=== PATIENT | male | born 1930 | race Caucasian/White ===

== ENCOUNTER 2016-10-24 13:25 | Outpatient (CLI) | payer MEDICARE | END 2016-10-24 13:26 | disposition home or self-care (01) | DX: N18.9 Chronic kidney disease, unspecified (principal); I50.9 Heart failure, unspecified ==

== ENCOUNTER 2016-11-22 12:45 | Outpatient (CLI) | payer MEDICARE | END 2016-11-22 12:46 | disposition home or self-care (01) | DX: N18.9 Chronic kidney disease, unspecified (principal); D63.1 Anemia in chronic kidney disease; I50.9 Heart failure, unspecified; E53.8 Deficiency of other specified B group vitamins ==

== ENCOUNTER 2017-01-03 12:58 | Outpatient (CLI) | payer MEDICARE | END 2017-01-03 12:59 | disposition home or self-care (01) | DX: N18.9 Chronic kidney disease, unspecified (principal); D63.1 Anemia in chronic kidney disease; I50.9 Heart failure, unspecified ==

== ENCOUNTER 2017-01-03 21:35 | Inpatient (IN) | payer MEDICARE ==
[2017-01-03] MEDS ORDERED: ONDANSETRON 4 MG/2 ML VIAL IVP PRN (22:20)
[2017-01-03] MEDS ORDERED: ACETAMINOPHEN 325 MG TABLET PO PRN (22:20)
[2017-01-03] MEDS ORDERED: diphenhydrAMINE INJ 50 MG/ML VIAL IVP PRN (22:23)
[2017-01-03] MEDS ORDERED: FUROSEMIDE 20 MG/2 ML VIAL IVP PRN (22:23)
[2017-01-04] MEDS: PANTOPRAZOLE 40 MG VIAL IVP SCH ×3 (00:07→16:14)
[2017-01-04] MEDS: SODIUM CHLORIDE FLUSH 0.9% 10 ML SYRINGE IVP PRN ×2 (00:07→10:55)
[2017-01-04] MEDS: SODIUM CHLORIDE FLUSH 0.9% 10 ML SYRINGE IVP SCH ×3 (06:24→20:03)
[2017-01-04] MEDS: FERROUS SULFATE 325 MG TABLET PO SCH ×2 (08:56→16:14)
[2017-01-04] MEDS: ESCITALOPRAM 10 MG TABLET PO SCH (08:56)
[2017-01-04] MEDS: FUROSEMIDE 20 MG TABLET PO SCH (08:57)
[2017-01-04] MEDS: POTASSIUM CHLORIDE 10 MEQ CAPSULE PO SCH (08:57)
[2017-01-04] MEDS: TAMSULOSIN 0.4 MG CAPSULE PO SCH (08:57)
[2017-01-04] MEDS ORDERED: METOPROLOL SUCCINATE 50 MG TABLET PO SCH (09:00)
[2017-01-04] MEDS: POLYETHYLENE GLYCOL 3350 17 GM PACKET PO SCH (09:05)
[2017-01-04] MEDS ORDERED: SODIUM CHLORIDE 0.9% 250 ML IV ONE (10:53)
[2017-01-04] MEDS ORDERED: ACETAMINOPHEN 325 MG TABLET PO PRN (12:34)
[2017-01-04] MEDS: ASPIRIN EC 81 MG TABLET PO SCH (13:58)
[2017-01-05] MEDS: PANTOPRAZOLE 40 MG VIAL IVP SCH (06:17)
[2017-01-05] MEDS: SODIUM CHLORIDE FLUSH 0.9% 10 ML SYRINGE IVP SCH (06:17)
[2017-01-05] MEDS: POTASSIUM CHLORIDE 10 MEQ CAPSULE PO SCH (08:09)
[2017-01-05] MEDS: TAMSULOSIN 0.4 MG CAPSULE PO SCH (08:10)
[2017-01-05] MEDS: FERROUS SULFATE 325 MG TABLET PO SCH (08:10)
[2017-01-05] MEDS: FUROSEMIDE 20 MG TABLET PO SCH (08:10)
[2017-01-05] MEDS: ASPIRIN EC 81 MG TABLET PO SCH (08:11)
[2017-01-05] MEDS: ESCITALOPRAM 10 MG TABLET PO SCH (08:11)
[2017-01-05] MEDS: POLYETHYLENE GLYCOL 3350 17 GM PACKET PO SCH (08:12)
[2017-01-05] MEDS ORDERED: TRIAMCINOLONE 0.1% CREAM 15 GM TUBE TOP SCH (09:00)
[2017-01-05] MEDS ORDERED: CHOLECALCIFEROL 1,000 UNIT TABLET PO SCH (09:00)
[2017-01-05] MEDS ORDERED: SACCHAROMYCES BOULARDII 250 MG CAPSULE PO SCH (09:00)
== END 2017-01-05 13:30 | disposition home or self-care (01) | DRG 812 ==
PROC: 30233N1 Transfusion of Nonautologous Red Blood Cells into Peripheral Vein, Percutaneous Approach (ICD-10-PCS; principal; 2017-01-04)
DX: D50.9 Iron deficiency anemia, unspecified (principal); K92.2 Gastrointestinal hemorrhage, unspecified; G30.9 Alzheimer's disease, unspecified; F02.80 Dementia in other diseases classified elsewhere, unspecified severity, without behavioral disturbance, psychotic disturbance, mood disturbance, and anxiety; R13.10 Dysphagia, unspecified; K64.8 Other hemorrhoids; F03.90 Unspecified dementia, unspecified severity, without behavioral disturbance, psychotic disturbance, mood disturbance, and anxiety; I12.9 Hypertensive chronic kidney disease with stage 1 through stage 4 chronic kidney disease, or unspecified chronic kidney disease; Z85.46 Personal history of malignant neoplasm of prostate; Z79.82 Long term (current) use of aspirin; N18.3 Chronic kidney disease, stage 3 (moderate); I44.0 Atrioventricular block, first degree; R00.1 Bradycardia, unspecified; F32.9 Major depressive disorder, single episode, unspecified; Z86.73 Personal history of transient ischemic attack (TIA), and cerebral infarction without residual deficits

== ENCOUNTER 2017-01-08 13:03 | Outpatient (CLI) | payer MEDICARE ==
[2017-01-08] MEDS ORDERED: BARIUM SULFATE 176 GM BOTTLE PO ONE (15:24)
[2017-01-08] MEDS ORDERED: BARIUM SULFATE 454 GM TUBE PO ONE (15:24)
== END 2017-01-08 13:04 | disposition home or self-care (01) ==
DX: R09.89 Other specified symptoms and signs involving the circulatory and respiratory systems (principal); F03.90 Unspecified dementia, unspecified severity, without behavioral disturbance, psychotic disturbance, mood disturbance, and anxiety
CPT/HCPCS: 74230; 92611; A9270

== ENCOUNTER 2017-01-13 13:11 | Outpatient (CLI) | payer MEDICARE | END 2017-01-13 13:12 | disposition home or self-care (01) | DX: K62.5 Hemorrhage of anus and rectum (principal) ==

== ENCOUNTER 2017-03-27 16:55 | Outpatient (CLI) | payer MEDICARE ==
[2017-03-27 17:25] LABS: BASOPHILS # (AUTO) 0.1 10^3/uL (0.0-0.1); EOSINOPHILS # (AUTO) 0.3 10^3/uL (0.0-0.7); EOSINOPHILS % (AUTO) 4.8 %; HCT - HEMATOCRIT 40.6 % (42.0-52.0); HGB - HEMOGLOBIN 13.7 g/dL (14.0-18.0); LYMPHOCYTES # (AUTO) 1.7 10^3/uL (1.5-3.5); LYMPHOCYTES % (AUTO) 30.1 %; MEAN CORPUSCULAR HEMOGLOBIN 32.2 pg (27.0-31.0); MEAN CORPUSCULAR HGB CONC 33.8 g/dL (32.0-36.0); MEAN CORPUSCULAR VOLUME 95.3 fL (80.0-94.0); MEAN PLATELET VOLUME 8.8 fL (7.4-11.4); MONOCYTES # (AUTO) 0.5 10^3/uL (0.0-1.0); MONOCYTES % (AUTO) 9.2 %; NEUTROPHILS # (AUTO) 3.2 10^3/uL (1.5-6.6); NEUTROPHILS % (AUTO) 54.9 %; NUCLEATED RED BLOOD CELLS AUTO 0.1 /100WBC; RED BLOOD COUNT 4.26 10^6/uL (4.70-6.10); RED CELL DISTRIBUTION WIDTH 18.2 % (12.0-15.0); UNCORRECTED WHITE BLOOD COUNT 5.8 x10^3/uL; WHITE BLOOD COUNT 5.8 x10^3/uL (4.8-10.8)
== END 2017-03-27 16:56 | disposition home or self-care (01) ==
LOC: LAB 16:55
PROVIDERS: ATTEND Nurse Practitioner Family
DX: N18.9 Chronic kidney disease, unspecified (principal); D63.1 Anemia in chronic kidney disease
CPT/HCPCS: 36415; 85025

== ENCOUNTER 2017-04-01 08:00 | Outpatient (CLI) | payer MEDICARE | END 2017-04-01 23:59 | disposition home or self-care (01) | LOC: LAB.R 08:00 | PROVIDERS: ATTEND Nurse Practitioner Family | DX: D63.1 Anemia in chronic kidney disease (principal) | CPT/HCPCS: 82270 ==

== ENCOUNTER 2017-05-08 12:11 | Day surgery (SDC) | payer MEDICARE ==
[2017-05-08] MEDS ORDERED: LACTATED RINGERS 1,000 ML IV ONE (12:45)
--- NOTE | 2017-05-08 14:09 | HISTORY & PHYSICAL EXAMINATION ---
HPI - History of Present Illness HPI Comment/Other: patient is here for anemia and choking episodes Current Meds: FE TABS 325 (65 FE) MG ORAL TBEC (FERROUS SULFATE) Take one tab by mouth twice daily OMEPRAZOLE 20 MG CPDR (OMEPRAZOLE) Take one capsule by mouth twice daily TRIAMCINOLONE ACETONIDE 0.1 % CREA (TRIAMCINOLONE ACETONIDE) Apply sparingly to affected areas daily * HANDICAP PARKING PERMIT Use as directed FLORASTOR 250 MG ORAL CAPS (SACCHAROMYCES BOULARDII) 1 tab by mouth Daily POTASSIUM CHLORIDE CR 10 MEQ TBCR (POTASSIUM CHLORIDE) Take one tablet by mouth daily LASIX 20 MG TABS (FUROSEMIDE) Take two tablet by mouth every morning. With 5 lb weight gain take 2 x one day and call TYLENOL 325 MG TABS (ACETAMINOPHEN) Take 2 tablets every 6 hours as needed for pain VITAMIN D 1000 UNIT TABS (CHOLECALCIFEROL) Take one tablet by mouth daily for vit D deficiency ASPIR-LOW 81 MG ORAL TBEC (ASPIRIN) Take 1 tablet once daily for stroke prevention FLOMAX 0.4 MG CAPS (TAMSULOSIN HCL) Take one capsule by mouth once daily LEXAPRO 10 MG TABS (ESCITALOPRAM OXALATE) Take one tablet by mouth daily METOPROLOL SUCCINATE ER 50 MG [id number] (METOPROLOL SUCCINATE) Take 1/2 tablet once daily for hypertension ALLERGY SYRINGE 28G X 1/2" 1 ML MISC (TUBERCULIN-ALLERGY SYRINGES) Use for Vit B12 injections. CYANOCOBALAMIN 1000 MCG/ML INJ SOLN (CYANOCOBALAMIN) Inject 1 ml intramuscularly once monthly BD INSULIN SYRINGE 25G X 1" 1 ML MISC (INSULIN SYRINGE-NEEDLE U-100) Use to give cyanocobalamin injections once monthly Allergies: NKDA Past Medical History: Reviewed history from 04/19/2016 and no changes required: Prostate Cancer--Herrera 7 2006 Depression HTN Heart Murmur Anemia Frequent Indigestion Heartburn Acid Reflux Hiatal Hernia Anxiety C V A / Stroke (04/2016) Past Surgical History: Reviewed history from 09/21/2013 and no changes required: 07-26-02-left knee arthroplasty 02.24.07--Prostate Ca, [employer] seed implants 03.07.2010--([facility]--[facility]) R knee arthroplasty Cataract Extraction--R eye Family History Summary: Reviewed history Last on 03/26/2016 and no changes required:04/03/2017 Father (biol.) - Has a father - Entered On: 05/11/2014 Mother (biol.) - Has a mother - Entered On: 05/11/2014 General Comments - FH: Father: in 80's, liver cancer Mother: age 77, heart failure Siblings: 1 sister w/diabetes Social History: Reviewed history from 01/10/2017 and no changes required: . 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 His is his primary caregiver. Unfortunately both with dementia. [place] Patient has never smoked. Alcohol Use - yes--2-3 drinks per week. Risk Factors: Smoked Tobacco Use: Never smoker Previous Tobacco Use: Signed On - 01/17/2017 Smoked Tobacco Use: Never smoker Smokeless Tobacco Use: Never Passive smoke exposure: no Drug use: no HIV high-risk behavior: no Caffeine use: 1 drinks per day Previous Alcohol Use: Signed On - 01/17/2017 Alcohol use: no Exercise: no Seatbelt use: 100 % Sun Exposure: rarely Physical Exam General: normal appearance and obese. In a wheelchair Lungs: clear bilaterally to A & P Heart: Pansystolic murmur Abdomen: Protuberant, nontender to palpation, no masses palpable Pulses: pulses normal in all 4 extremities Extremities: no clubbing, cyanosis, edema, or deformity noted with normal full range of motion of all joints Cervical Nodes: no significant adenopathy Psych: alert and cooperative; normal mood and affect; normal attention span and concentration Impression & Recommendations: Problem # 1: Choking and chronic anemia proceed with EGD. PMH/PSH - Past Medical History Cardiovascular: positive: Hypertension, Murmur Respiratory: positive: None Neuro: positive: Dementia, CVA (Right [place] in 2015) Endocrine/Autoimmune: positive: None GI: positive: GERD, GI bleed, Hiatal hernia, Colon polyps : positive: Incontinence, Other HEENT: positive: None Psych: positive: Depression Musculoskeletal: positive: Osteoarthritis, Fatigue Derm: positive: Other MRSA Hx?: No - Past Surgical History General: positive: Colonoscopy Ortho: positive: Knee replacement HEENT: positive: Cataracts Social & Family Hx - Social History Does the pt smoke?: No Smoking Status: Never smoker Does the pt drink ETOH?: Yes ETOH Use: Beer Does the pt have substance abuse?: No - POLST Patient has POLST: No Meds/Allgy - Home Medications Home Medications: Ambulatory Orders Medication Instructions Recorded Confirmed Escitalopram [Lexapro] 10 mg PO DAILY 03/27/16 01/04/17 Cyanocobalamin (Vitamin B-12) 1,000 mcg IM .MONTHLY 11/28/16 01/04/17 [Cyanocobalamin Injection] Furosemide [Lasix] 40 mg PO DAILY 11/28/16 01/04/17 Potassium Chloride [Micro-K] 10 meq PO DAILY 11/28/16 01/04/17 Saccharomyces Boulardii [Florastor] 250 mg PO DAILY 11/28/16 01/04/17 Tamsulosin [Flomax] 0.4 mg PO DAILY 11/28/16 01/04/17 Acetaminophen [Tylenol] 650 mg PO Q6H PRN 01/04/17 01/04/17 Aspirin [Aspirin EC] 81 mg PO DAILY 01/04/17 01/04/17 Cholecalciferol (Vitamin D3) 1,000 units PO DAILY 01/04/17 01/04/17 [Vitamin D3] Triamcinolone 0.1% Cream [Kenalog 1 applic TOP DAILY 01/04/17 01/04/17 0.1% Cream] Ferrous Sulfate [Feosol] 325 mg PO BIDWM #60 tablet 01/05/17 Pantoprazole [Protonix] 40 mg IVP BIDAC #60 vial 01/05/17 Polyethylene Glycol 3350 [Miralax] 17 gm PO DAILY #30 packet 01/05/17 - Allergies Allergies/Adverse Reactions: Allergies Allergy/AdvReac Type Severity Reaction Status Date / Time No Known Drug Allergies Allergy Verified 03/26/16 16:39 Exam - Vital Signs Vital Signs: Vital Signs x48h Temp Pulse Resp BP Pulse Ox 05/08/17 12:25 36.6 C 83 16 142/72 H 95
[2017-05-08] MEDS ORDERED: BENZOCAINE/TETRACAINE/BUTAMBEN SPRAY 56 GM TOP ONE (14:16)
[2017-05-08] MEDS ORDERED: fentaNYL 100 MCG/2 ML VIAL IVP ONE (14:35)
[2017-05-08] MEDS ORDERED: MIDAZOLAM 2 MG/2 ML VIAL IVP ONE (14:35)
[2017-05-08 16:02] VITALS: BP 125/75
== END 2017-05-08 12:12 | disposition home or self-care (01) ==
LOC: SDS 12:11
PROVIDERS: ATTEND Surgery
PROC: 0DB78ZX Excision of Stomach, Pylorus, Via Natural or Artificial Opening Endoscopic, Diagnostic (ICD-10-PCS; principal; 2017-05-08 13:15)
DX: D64.9 Anemia, unspecified (principal); K44.9 Diaphragmatic hernia without obstruction or gangrene; R12 Heartburn; K21.9 Gastro-esophageal reflux disease without esophagitis; I10 Essential (primary) hypertension; F32.9 Major depressive disorder, single episode, unspecified; E66.9 Obesity, unspecified; F41.9 Anxiety disorder, unspecified; F03.90 Unspecified dementia, unspecified severity, without behavioral disturbance, psychotic disturbance, mood disturbance, and anxiety; Z86.73 Personal history of transient ischemic attack (TIA), and cerebral infarction without residual deficits; Z82.49 Family history of ischemic heart disease and other diseases of the circulatory system; Z79.82 Long term (current) use of aspirin; Z83.3 Family history of diabetes mellitus; Z80.0 Family history of malignant neoplasm of digestive organs; Z96.659 Presence of unspecified artificial knee joint; Z68.29 Body mass index [BMI] 29.0-29.9, adult
CPT/HCPCS: 43239; A9270; J7120

== ENCOUNTER 2017-07-08 10:11 | Outpatient (CLI) | payer MEDICARE ==
[2017-07-08 18:08] LABS: BILIRUBIN,URINE NEGATIVE (NEGATIVE); PH,URINE 5.5 PH (5.0-7.5)
[2017-07-08 18:58] LABS: WBC,URINE 0-3 /HPF (0-3)
== END 2017-07-08 10:12 | disposition home or self-care (01) ==
LOC: LAB.F 10:11
PROVIDERS: ATTEND Urology
DX: R31.9 Hematuria, unspecified (principal)
CPT/HCPCS: 81001; 87086

== ENCOUNTER 2017-08-30 14:53 | Outpatient (CLI) | payer MEDICARE | END 2017-08-30 14:54 | disposition critical access hospital (66) | LOC: EMS 14:53 | PROVIDERS: ATTEND Surgery | DX: K62.5 Hemorrhage of anus and rectum (principal) | CPT/HCPCS: A0425; A0427 ==

== ENCOUNTER 2017-08-30 15:34 | Emergency (ER) | payer MEDICARE ==
[2017-08-30 15:56] LABS: HCT - HEMATOCRIT 37.9 % (42.0-52.0); MEAN CORPUSCULAR HEMOGLOBIN 34.3 pg (27.0-31.0); MEAN CORPUSCULAR HGB CONC 34.4 g/dL (32.0-36.0); MEAN CORPUSCULAR VOLUME 99.7 fL (80.0-94.0); MEAN PLATELET VOLUME 9.2 fL (7.4-11.4); RED BLOOD COUNT 3.8 10^6/uL (4.70-6.10); RED CELL DISTRIBUTION WIDTH 13.3 % (12.0-15.0); WHITE BLOOD COUNT 5.1 x10^3/uL (4.8-10.8)
[2017-08-30 16:10] LABS: ALBUMIN/GLOBULIN RATIO 0.9 (1.0-2.2); BILIRUBIN,TOTAL 0.9 mg/dL (0.2-1.0); CREATININE 1.3 mg/dL (0.6-1.2); POTASSIUM 3.6 mmol/L (3.5-5.0); TOTAL PROTEIN 6.6 g/dL (6.7-8.2)
[2017-08-30] MEDS ORDERED: IOPAMIDOL-300 100 ML VIAL IVP ONE (17:14)
--- NOTE | 2017-08-30 17:50 | CT Preliminary Report ---
Exam: CT ABDOMEN/PELVIS W/ IMPRESSION: 1. Large hiatal hernia. 2. Mild descending and sigmoid colon diverticulosis without evidence for acute diverticulitis. 3. Cholelithiasis. 4. Mild splenomegaly. 5. Otherwise, as above. [facility] SITE ID: [id number]
--- NOTE | 2017-08-30 17:58 | CT Report ---
EXAM: CT ABDOMEN AND PELVIS EXAM DATE: 08/30/2017 05:14 p.m. CLINICAL HISTORY: Rectal bleeding. COMPARISONS: None. TECHNIQUE: Routine helical CT imaging was performed through the abdomen and pelvis. IV contrast: 100M L OF ISOVUE 300. Enteric contrast: No. Reconstructions: Coronal and sagittal. In accordance with CT protocol optimization, one or more of the following dose reduction techniques w ere utilized for this exam: automated exposure control, adjustment of mA and/or KV based on patient s ize, or use of iterative reconstructive technique. FINDINGS: Lung Bases: Mild bibasilar peripheral pulmonary fibrosis, could be age related. Coronary artery calci fication. Aortic valve calcification. Small right base pleural calcification. Large hiatal hernia. Liver: Normal. No masses. Gallbladder/Bile Ducts: Multiple small gallstones. No bile dilatation. Spleen: Mild splenomegaly measuring 13.9 cm. Pancreas: Unremarkable. Adrenal Glands: Normal. Kidneys: No hydronephrosis. Mild scarring is possible at the lower pole left kidney versus mild lobul ar contour. Peritoneal Cavity/Bowel: Large hiatal hernia. No dilated loops of bowel are seen to suggest obstructi on. Normal appendix. Mild sigmoid and descending colon diverticulosis without evidence for acute dive rticulitis. No free fluid or free air. Pelvic Organs: Bladder is unremarkable. Prostate seed implants. The rectum appears unremarkable. Vasculature: No abdominal aortic aneurysm. Calcified plaque causes hemodynamically significant stenos is at the origin of the celiac artery. Bones: Mild anterolisthesis of L5-S1 where there is large bilateral facet arthropathy and possible bi lateral L5 pars defects reactions. No acute bone findings are seen. IMPRESSION: 1. Large hiatal hernia. 2. Mild descending and sigmoid colon diverticulosis without evidence for acute diverticulitis. 3. Cholelithiasis. 4. Mild splenomegaly. 5. Otherwise, as above. [facility] Referring Provider Line: [phone] SITE ID: [id number]
--- NOTE | 2017-08-30 19:54 | ED Physician Documentation ---
History of Present Illness - Stated complaint Stated Complaint: GI BLEED - Chief complaint Chief Complaint: General - History obtained from History obtained from: EMS (EMS reports they were called by the family after the pt had an episode of rectal bleeding. pt has a hx of dementia and a hx of GI bleeds needing transfusion in the past. his who was not at the hospital states that he is at his baseline mentl status. Reports of 1 episode of bright red blood.) Review of Systems Unable to obtain: Dementia PD PAST MEDICAL HISTORY - Past Medical History Cardiovascular: Hypertension, Murmur Respiratory: None Neuro: Dementia, CVA Endocrine/Autoimmune: None GI: GERD, GI bleed, Hiatal hernia, Colon polyps : Incontinence, Other HEENT: None Psych: Depression Musculoskeletal: Osteoarthritis, Fatigue Derm: Other - Past Surgical History Past Surgical History: Yes General: Colonoscopy Ortho: Knee replacement HEENT: Cataracts - Present Medications Home Medications: Ambulatory Orders Medication Instructions Recorded Confirmed Escitalopram [Lexapro] 10 mg PO DAILY 03/27/16 01/04/17 Cyanocobalamin (Vitamin B-12) 1,000 mcg IM .MONTHLY 11/28/16 01/04/17 [Cyanocobalamin Injection] Furosemide [Lasix] 40 mg PO DAILY 11/28/16 01/04/17 Potassium Chloride [Micro-K] 10 meq PO DAILY 11/28/16 01/04/17 Saccharomyces Boulardii [Florastor] 250 mg PO DAILY 11/28/16 01/04/17 Tamsulosin [Flomax] 0.4 mg PO DAILY 11/28/16 01/04/17 Acetaminophen [Tylenol] 650 mg PO Q6H PRN 01/04/17 01/04/17 Aspirin [Aspirin EC] 81 mg PO DAILY 01/04/17 01/04/17 Cholecalciferol (Vitamin D3) 1,000 units PO DAILY 01/04/17 01/04/17 [Vitamin D3] Triamcinolone 0.1% Cream [Kenalog 1 applic TOP DAILY 01/04/17 01/04/17 0.1% Cream] Ferrous Sulfate [Feosol] 325 mg PO BIDWM #60 tablet 01/05/17 Pantoprazole [Protonix] 40 mg IVP BIDAC #60 vial 01/05/17 Polyethylene Glycol 3350 [Miralax] 17 gm PO DAILY #30 packet 01/05/17 - Allergies Allergies/Adverse Reactions: Allergies Allergy/AdvReac Type Severity Reaction Status Date / Time No Known Drug Allergies Allergy Verified 08/30/17 15:48 - Social History Does the pt smoke?: No Smoking Status: Never smoker Does the pt drink ETOH?: Yes Does the pt have substance abuse?: No - POLST Patient has POLST: No PD ED PE NORMAL - Vitals Vital signs reviewed: Yes - General General: No acute distress, Well developed/nourished. No: Alert and oriented X 3 (pt knows his name and that he is at the hospital but does not know the date or year or why he is here. ) - HEENT HEENT: Atraumatic, Moist mucous membranes - Cardiac Cardiac: RRR, No murmur, No gallop - Respiratory Respiratory: No respiratory distress, Clear bilaterally - Abdomen Abdomen: Normal bowel sounds, Soft, Non tender, Non distended - Rectal Rectal: Other (obvious red blood, 1 external hemorrhoid. No internal hemorrhoid felt. ) - Derm Derm: Normal color, No rash - Neuro Neuro: Normal speech Eye Opening: Spontaneous Motor: Obeys Commands Verbal: Confused GCS Score: 14 - Psych Psych: Normal mood, Normal affect Results - Vitals Vitals: Vital Signs - 24 hr 08/30/17 08/30/17 08/30/17 15:37 16:35 18:23 Temperature 36.3 C L 36.3 C L Heart Rate 77 84 66 Respiratory 20 17 19 Rate Blood Pressure 140/66 H 139/81 H 128/72 O2 Saturation 96 96 94 Oxygen O2 Source [Without Activity] Room air O2 Source Room air - Labs Labs: Laboratory Tests 08/30/17 08/30/17 08/30/17 15:45 15:45 15:45 WBC 5.1 RBC 3.80 L Hgb 13.0 L Hct 37.9 L MCV 99.7 H MCH 34.3 H MCHC 34.4 RDW 13.3 Plt Count 71 L MPV 9.2 Whole Blood INR APTT 26.8 Sodium 140 Potassium 3.6 Chloride 104 Carbon Dioxide 24 Anion Gap 12.0 BUN 15 Creatinine 1.3 H Estimated GFR (MDRD) 52 L Glucose 134 H Calcium 9.0 Total Bilirubin 0.9 AST 45 H ALT 27 Alkaline Phosphatase 96 Total Protein 6.6 L Albumin 3.2 Globulin 3.4 Albumin/Globulin Ratio 0.9 L Lipase 25 Blood Type Antibody Screen 08/30/17 08/30/17 15:45 15:50 WBC RBC Hgb Hct MCV MCH MCHC RDW Plt Count MPV Whole Blood INR 1.2 APTT Sodium Potassium Chloride Carbon Dioxide Anion Gap BUN Creatinine Estimated GFR (MDRD) Glucose Calcium Total Bilirubin AST ALT Alkaline Phosphatase Total Protein Albumin Globulin Albumin/Globulin Ratio Lipase Blood Type O POSITIVE Antibody Screen NEGATIVE - Rads (name of study) CT ABD/Pelvis Radiology: Final report received PD MEDICAL DECISION MAKING - ED course ED course: pt stable in the ER h/h stable from prior. has red blood in his diaper with a hemorrhoid but had no further episodes of rectal bleeding while in the ER. CT neg for acute pathology. pt is a baseline mental per his . I suspect this rectal bleeding f=was from the hemorrhoid. no need for transfusion. Will discharge home with return precautions. Departure - Departure Disposition: Home, Self Care Clinical Impression: Rectal bleeding, External hemorrhoid Condition: Good Instructions: Bleeding Rectal Follow-Up: Homa Almanzar MD [Primary Care Provider] - Comments: Call the primary provider on friday. Return to the ER for any new or worsening symptoms.
[2017-08-30 20:21] VITALS: BP 148/71
== END 2017-08-30 20:36 | disposition home or self-care (01) ==
LOC: EDUNIT# → ED 15:34
DX: K62.5 Hemorrhage of anus and rectum (principal); K64.4 Residual hemorrhoidal skin tags; I10 Essential (primary) hypertension; K21.9 Gastro-esophageal reflux disease without esophagitis; Z86.010 Personal history of colon polyps; M19.90 Unspecified osteoarthritis, unspecified site; F03.90 Unspecified dementia, unspecified severity, without behavioral disturbance, psychotic disturbance, mood disturbance, and anxiety
CPT/HCPCS: 36415; 74177; 80053; 83690; 85610; 85730; 86850; 86900; 86901; 99283; 99284

== ENCOUNTER 2017-09-20 17:38 | Outpatient (CLI) | payer MEDICARE | END 2017-09-20 17:39 | disposition EMS.NT | LOC: EMS 17:38 | PROVIDERS: ATTEND Surgery | DX: S01.91XA Laceration without foreign body of unspecified part of head, initial encounter (principal); W18.30XA Fall on same level, unspecified, initial encounter; Y92.009 Unspecified place in unspecified non-institutional (private) residence as the place of occurrence of the external cause ==

== ENCOUNTER 2018-02-19 13:30 | Emergency (ER) | payer MEDICARE ==
[2018-02-19 14:14] LABS: HGB - HEMOGLOBIN 9.8 g/dL (14.0-18.0); MEAN CORPUSCULAR HGB CONC 33.9 g/dL (32.0-36.0); MEAN CORPUSCULAR VOLUME 100.1 fL (80.0-94.0); MEAN PLATELET VOLUME 9.1 fL (7.4-11.4); RED BLOOD COUNT 2.88 10^6/uL (4.70-6.10); RED CELL DISTRIBUTION WIDTH 14.5 % (12.0-15.0); WHITE BLOOD COUNT 4.2 x10^3/uL (4.8-10.8)
[2018-02-19 14:22] LABS: INR 1.3 (0.8-1.2); PT - PROTHROMBIN TIME 14.7 secs (9.9-12.6)
[2018-02-19] MEDS ORDERED: SODIUM CHLORIDE 0.9% 1,000 ML IV ONE (14:29)
[2018-02-19 14:30] LABS: ALBUMIN 2.8 g/dL (3.2-5.5); ALBUMIN/GLOBULIN RATIO 0.9 (1.0-2.2); BILIRUBIN,TOTAL 1.3 mg/dL (0.2-1.0); CALCIUM 8.5 mg/dL (8.5-10.3); CREATININE 1.5 mg/dL (0.6-1.2); TOTAL PROTEIN 5.8 g/dL (6.7-8.2)
[2018-02-19] MEDS ORDERED: FAMOTIDINE 20 MG/50 ML 50 ML IV ONE (15:09)
--- NOTE | 2018-02-19 15:53 | ED Physician Documentation ---
PD HPI GI BLEED - Stated complaint Stated Complaint: MALE /BLEEDING - Chief complaint Chief Complaint: General - History obtained from History obtained from: Patient, Family - History of Present Illness Timing - onset: How many days ago (6) Timing - details: Still present Associated symptoms: Black/tarry stool Contributing factors: Aspirin use (81 mg) Recently seen: Clinic (He was seen in clinic this morning and was sent here for further evaluation and treatment.) - Additional information Additional information: The patient is an 88-year-old male with history of dementia, who presents with rectal bleeding. His reports that he has had 1 or 2 black stools daily for the past 6 days. He denies any lightheadedness, chest pain, or shortness of breath. He denies abdominal pain, nausea or vomiting. He has a history of similar symptoms intermittently for the past 2 years. He underwent transfusion for anemia in November and January of last year. Workup reportedly revealed no obvious source for his apparent GI bleed, except for hemorrhoids. He is currently being treated with supplemental iron. Review of Systems Constitutional: denies: Fever Nose: denies: Congestion Throat: denies: Sore throat Cardiac: denies: Chest pain / pressure Respiratory: denies: Dyspnea, Cough GI: reports: Bloody / black stool. denies: Abdominal Pain, Nausea, Vomiting : denies: Dysuria Skin: denies: Rash Musculoskeletal: denies: Extremity swelling Neurologic: reports: Confused (chronically). denies: Focal weakness, Numbness, Headache PD PAST MEDICAL HISTORY - Past Medical History Cardiovascular: Hypertension, Murmur Respiratory: None Neuro: Dementia Endocrine/Autoimmune: None GI: GERD, GI bleed, Hiatal hernia, Colon polyps : Incontinence, Other HEENT: None Psych: Depression Musculoskeletal: Osteoarthritis, Fatigue Derm: Other - Past Surgical History Past Surgical History: Yes General: Colonoscopy Ortho: Knee replacement HEENT: Cataracts - Present Medications Home Medications: Ambulatory Orders Medication Instructions Recorded Confirmed Cyanocobalamin (Vitamin B-12) 1,000 mcg IM .MONTHLY 11/28/16 01/04/17 [Cyanocobalamin Injection] Saccharomyces Boulardii [Florastor] 250 mg PO DAILY 11/28/16 01/04/17 Acetaminophen [Tylenol] 650 mg PO Q6H PRN 01/04/17 01/04/17 Aspirin [Aspirin EC] 81 mg PO DAILY 01/04/17 01/04/17 Cholecalciferol (Vitamin D3) 1,000 units PO DAILY 01/04/17 01/04/17 [Vitamin D3] Ferrous Sulfate [Feosol] 325 mg PO BIDWM #60 tablet 01/05/17 Fluticasone [Flonase] 1 inh MULUGETA DAILY 02/19/18 02/19/18 Losartan [Cozaar] 1 tab PO DAILY 02/19/18 02/19/18 Lovastatin 1 tab PO DAILY 02/19/18 02/19/18 Omeprazole 1 cap PO DAILY 02/19/18 02/19/18 metFORMIN [Glucophage] 1 tab PO BID 02/19/18 02/19/18 - Allergies Allergies/Adverse Reactions: Allergies Allergy/AdvReac Type Severity Reaction Status Date / Time No Known Drug Allergies Allergy Verified 02/19/18 15:42 - Social History Does the pt smoke?: No Smoking Status: Never smoker Does the pt drink ETOH?: Yes Does the pt have substance abuse?: No - POLST Patient has POLST: No PD ED PE NORMAL - Vitals Vital signs reviewed: Yes (Normal) - General General: No acute distress, Well developed/nourished, Other (Alert, disoriented to date.) - HEENT HEENT: Atraumatic, Moist mucous membranes - Neck Neck: No adenopathy, No JVD - Cardiac Cardiac: RRR - Respiratory Respiratory: No respiratory distress, Clear bilaterally - Abdomen Abdomen: Soft, Non tender - Rectal Rectal: Other (Black, heme positive stool.) - Back Back: No CVA TTP - Derm Derm: No rash - Extremities Extremities: No edema, No calf tenderness / cord - Neuro Neuro: Other (Alert, oriented 2. Generalized weakness, without focal motor deficit detected.) Results - Vitals Vitals: Oxygen O2 Source [Without Activity] Room air O2 Source Room air - Labs Labs: Laboratory Tests 02/19/18 02/19/18 02/19/18 13:58 13:58 13:58 WBC 4.2 L RBC 2.88 L Hgb 9.8 L Hct 28.8 L MCV 100.1 H MCH 34.0 H MCHC 33.9 RDW 14.5 Plt Count 75 L MPV 9.1 PT 14.7 H INR 1.3 H APTT 28.9 Sodium 138 Potassium 3.5 Chloride 105 Carbon Dioxide 27 Anion Gap 6.0 BUN 21 H Creatinine 1.5 H Estimated GFR (MDRD) 44 L Glucose 189 H Calcium 8.5 Total Bilirubin 1.3 H AST 42 ALT 24 Alkaline Phosphatase 91 Total Protein 5.8 L Albumin 2.8 L Globulin 3.0 Albumin/Globulin Ratio 0.9 L Lipase 19 L Blood Type Antibody Screen 02/19/18 14:12 WBC RBC Hgb Hct MCV MCH MCHC RDW Plt Count MPV PT INR APTT Sodium Potassium Chloride Carbon Dioxide Anion Gap BUN Creatinine Estimated GFR (MDRD) Glucose Calcium Total Bilirubin AST ALT Alkaline Phosphatase Total Protein Albumin Globulin Albumin/Globulin Ratio Lipase Blood Type O POSITIVE Antibody Screen NEGATIVE PD MEDICAL DECISION MAKING - ED course Complexity details: reviewed old records, reviewed results, re-evaluated patient , considered differential, d/w patient, d/w family, d/w java developer consultant ED course: The patient's presentation is significant for GI bleed with anemia, with hemoglobin of 9.8. He is otherwise asymptomatic, and his vital signs are normal. Treatment in the emergency department included administration of famotidine 20 mg IV. I discussed his condition with Dr. Ivy who is on-call for general surgery. He advised outpatient follow-up in the surgery clinic. I discussed with the patient and his family members the results of his workup, the importance of urgent follow-up in surgery clinic, as well as potentially worrisome signs or symptoms that should prompt reevaluation in the emergency department. Departure - Departure Disposition: 01 Home, Self Care Clinical Impression: GI bleed Qualifiers: GI bleed type/associated pathology: melena Qualified Code(s): K92.1 - Melena Dementia Qualifiers: Dementia type: unspecified type Dementia behavioral disturbance: without behavioral disturbance Qualified Code(s): F03.90 - Unspecified dementia without behavioral disturbance Condition: Stable Instructions: ED Hematochezia Stable Follow-Up: HUGO OSBORN MD [Primary Care Provider] - Gerber Ivy MD [Provider Admit Priv/Credential] - Comments: Continue taking omeprazole as previously prescribed, as well as supplemental iron. Follow up with general surgery within the next week. Call to schedule appointment. Return to the emergency department if you develop increasing rectal bleeding, lightheadedness, chest pain, shortness of breath, or otherwise worsening symptoms. Discharge Date/Time: 02/19/18 16:37
[2018-02-19 16:31] VITALS: BP 121/67
== END 2018-02-19 16:37 | disposition home or self-care (01) ==
LOC: ED 13:30
DX: K92.1 Melena (principal); F03.90 Unspecified dementia, unspecified severity, without behavioral disturbance, psychotic disturbance, mood disturbance, and anxiety; I10 Essential (primary) hypertension; Z96.659 Presence of unspecified artificial knee joint
CPT/HCPCS: 36415; 80053; 83690; 85027; 85610; 85730; 86850; 86900; 86901; 96365; 99283; 99284

== ENCOUNTER 2018-03-30 03:11 | Outpatient (CLI) | payer MEDICARE | END 2018-03-30 03:12 | disposition critical access hospital (66) | LOC: EMS 03:11 | PROVIDERS: ATTEND Surgery | DX: K92.0 Hematemesis (principal); K92.1 Melena | CPT/HCPCS: A0425; A0427 ==

== ENCOUNTER 2018-03-30 03:46 | Inpatient (IN) | payer MEDICARE ==
--- NOTE | 2018-03-30 04:13 | ED Physician Documentation ---
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 called 911; en route to ED, he had large maroon stool, as well. Review of Systems Unable to obtain: Confused, Dementia Constitutional: denies: Fever Cardiac: denies: Chest pain / pressure Respiratory: denies: Dyspnea, Cough GI: reports: Hematemesis, Bloody / black stool. denies: Abdominal Pain PD PAST MEDICAL HISTORY - Past Medical History Past Medical History: Yes Cardiovascular: Hypertension, Murmur Respiratory: None Neuro: Dementia Endocrine/Autoimmune: None GI: GERD, GI bleed, Hiatal hernia, Colon polyps : Incontinence, Other HEENT: None Psych: Depression Musculoskeletal: Osteoarthritis, Fatigue Derm: Other - Past Surgical History Past Surgical History: Yes General: Colonoscopy Ortho: Knee replacement HEENT: Cataracts - Present Medications Home Medications: Ambulatory Orders Medication Instructions Recorded Confirmed Aspirin [Aspirin EC] 81 mg PO DAILY 01/04/17 01/04/17 Ferrous Sulfate [Feosol] 325 mg PO BIDWM #60 tablet 01/05/17 Omeprazole 1 cap PO DAILY 02/19/18 02/19/18 Bimatoprost 0.01% Ophth Dops 1 drops EACHEYE DAILY 03/30/18 03/30/18 [Lumigan 0.01% Ophth Drops] Escitalopram [Lexapro] 10 mg PO DAILY 03/30/18 03/30/18 Furosemide [Lasix] 40 mg PO DAILY 03/30/18 03/30/18 Metoprolol Succinate [Toprol Xl] 50 mg PO 03/30/18 03/30/18 Potassium Chloride 10 meq PO 03/30/18 Tamsulosin [Flomax] 0.4 mg PO ONCE 03/30/18 03/30/18 hydrOXYzine HCl [Hydroxyzine HCl] 25 mg PO 03/30/18 - Allergies Allergies/Adverse Reactions: Allergies Allergy/AdvReac Type Severity Reaction Status Date / Time No Known Drug Allergies Allergy Verified 03/30/18 03:54 - Social History Does the pt smoke?: No Smoking Status: Never smoker Does the pt drink ETOH?: Yes Does the pt have substance abuse?: No - Immunizations Immunizations are current?: Yes - POLST Patient has POLST: No PD ED PE NORMAL - Vitals Vital signs reviewed: Yes - General General: No acute distress, Well developed/nourished, Other (awake, alert. oriented x 2 (knows name; does not know year or month; he gradually is able to identify that he is in [facility])) - HEENT HEENT: PERRL, EOMI, Other (dry mucous membranes; dried blood in and around mouth ) - Cardiac Cardiac: RRR - Respiratory Respiratory: No respiratory distress, Clear bilaterally - Abdomen Abdomen: Normal bowel sounds, Soft, Non tender, Non distended - Back Back: No CVA TTP - Derm Derm: Normal color, Warm and dry - Extremities Extremities: No edema - Neuro Neuro: dry roaster 2-12 intact, No motor deficit, No sensory deficit Eye Opening: Spontaneous Motor: Obeys Commands Verbal: Confused GCS Score: 14 PD ED PE EXPANDED - Cardiac Cardiac: Murmur Present (3/6 MICHELLE) - Rectal Rectal: Heme Occult Pos - QC + Results - Vitals Vitals: Vital Signs - 24 hr 03/30/18 03/30/18 03/30/18 03:50 04:00 04:06 Temperature 36.6 C Heart Rate 82 83 82 Respiratory 28 H 25 H 18 Rate Blood Pressure 106/52 L 101/49 L 83/64 L O2 Saturation 99 100 99 03/30/18 03/30/18 03/30/18 04:10 04:33 04:56 Temperature Heart Rate 79 75 Respiratory 18 22 Rate Blood Pressure 85/56 L 97/54 L 83/57 L O2 Saturation 99 99 03/30/18 03/30/18 05:17 05:33 Temperature Heart Rate 79 82 Respiratory 19 18 Rate Blood Pressure 84/52 L 86/53 L O2 Saturation 99 99 Oxygen O2 Source [Without Activity] Room air O2 Source Room air - EKG (time done) No standard instances Rate: Rate (enter#) (80) Rhythm: NSR [place]: LAD Intervals: Normal MI QRS: Normal Ischemia: Normal ST segments, Q waves (III, aVF) - Labs Labs: Laboratory Tests 03/30/18 03/30/18 03/30/18 03:53 03:53 03:53 WBC 12.0 H RBC 2.18 L Hgb 7.5 L Hct 22.7 L MCV 104.2 H MCH 34.6 H MCHC 33.2 RDW 14.0 Plt Count 138 MPV 10.0 Neut # (Auto) 7.3 H Lymph # (Auto) 3.3 [place] # (Auto) 1.1 H Eos # (Auto) 0.3 Baso # (Auto) 0.1 Absolute Nucleated RBC 0.01 Nucleated RBC % 0.0 PT 18.7 H INR 1.7 H APTT 29.7 Sodium 141 Potassium 3.6 Chloride 112 H Carbon Dioxide 20 L Anion Gap 9.0 BUN 54 H Creatinine 1.8 H Estimated GFR (MDRD) 36 L Glucose 153 H Calcium 7.9 L Total Bilirubin 0.9 AST 41 ALT 24 Alkaline Phosphatase 82 Total Protein 4.8 L Albumin 2.2 L Globulin 2.6 Albumin/Globulin Ratio 0.8 L Lipase 18 L Blood Type Antibody Screen Crossmatch IS Only 03/30/18 03:53 WBC RBC Hgb Hct MCV MCH MCHC RDW Plt Count MPV Neut # (Auto) Lymph # (Auto) [place] # (Auto) Eos # (Auto) Baso # (Auto) Absolute Nucleated RBC Nucleated RBC % PT INR APTT Sodium Potassium Chloride Carbon Dioxide Anion Gap BUN Creatinine Estimated GFR (MDRD) Glucose Calcium Total Bilirubin AST ALT Alkaline Phosphatase Total Protein Albumin Globulin Albumin/Globulin Ratio Lipase Blood Type O POSITIVE Antibody Screen NEGATIVE Crossmatch IS Only See Detail PD MEDICAL DECISION MAKING - ED course Complexity details: reviewed old records, reviewed results, re-evaluated patient , considered differential, d/w patient - Sepsis Event Vital Signs: Vital Signs - 24 hr 03/30/18 03/30/18 03/30/18 03:50 04:00 04:06 Temperature 36.6 C Heart Rate 82 83 82 Respiratory 28 H 25 H 18 Rate Blood Pressure 106/52 L 101/49 L 83/64 L O2 Saturation 99 100 99 03/30/18 03/30/18 03/30/18 04:10 04:33 04:56 Temperature Heart Rate 79 75 Respiratory 18 22 Rate Blood Pressure 85/56 L 97/54 L 83/57 L O2 Saturation 99 99 03/30/18 03/30/18 05:17 05:33 Temperature Heart Rate 79 82 Respiratory 19 18 Rate Blood Pressure 84/52 L 86/53 L O2 Saturation 99 99 Oxygen O2 Source [Without Activity] Room air O2 Source Room air Departure - Departure Disposition: 66 [facility] DC/Xfer Clinical Impression: Hematemesis/vomiting blood, Lower GI bleed Condition: Stable Discharge Date/Time: 03/30/18 06:47
[2018-03-30] MEDS ORDERED: SODIUM CHLORIDE 0.9% 500 ML IV STA (04:26)
[2018-03-30] MEDS ORDERED: ONDANSETRON 4 MG/2 ML VIAL IVP STA (04:38)
[2018-03-30 04:41] LABS: BASOPHILS # (AUTO) 0.1 10^3/uL (0.0-0.1); BASOPHILS % (AUTO) 0.6 %; EOSINOPHILS # (AUTO) 0.3 10^3/uL (0.0-0.7); EOSINOPHILS % (AUTO) 2.5 %; HGB - HEMOGLOBIN 7.5 g/dL (14.0-18.0); LYMPHOCYTES # (AUTO) 3.3 10^3/uL (1.5-3.5); LYMPHOCYTES % (AUTO) 27.3 %; MEAN CORPUSCULAR HEMOGLOBIN 34.6 pg (27.0-31.0); MEAN CORPUSCULAR HGB CONC 33.2 g/dL (32.0-36.0); MEAN CORPUSCULAR VOLUME 104.2 fL (80.0-94.0); MONOCYTES # (AUTO) 1.1 10^3/uL (0.0-1.0); MONOCYTES % (AUTO) 9.1 %; NEUTROPHILS # (AUTO) 7.3 10^3/uL (1.5-6.6); NEUTROPHILS % (AUTO) 60.5 %; PLT - PLATELET COUNT 138 10^3/uL (130-450); RED BLOOD COUNT 2.18 10^6/uL (4.70-6.10)
[2018-03-30 04:44] LABS: INR 1.7 (0.8-1.2); PT - PROTHROMBIN TIME 18.7 secs (9.9-12.6)
[2018-03-30 04:49] LABS: ALBUMIN 2.2 g/dL (3.2-5.5); ALBUMIN/GLOBULIN RATIO 0.8 (1.0-2.2); BILIRUBIN,TOTAL 0.9 mg/dL (0.2-1.0); CALCIUM 7.9 mg/dL (8.5-10.3); CREATININE 1.8 mg/dL (0.6-1.2); TOTAL PROTEIN 4.8 g/dL (6.7-8.2)
[2018-03-30] MEDS ORDERED: oxyCODONE 5 MG TABLET PO PRN (05:48)
[2018-03-30] MEDS ORDERED: PROCHLORPERAZINE 10 MG/2 ML VIAL IVP PRN (05:48)
[2018-03-30] MEDS ORDERED: TAMSULOSIN 0.4 MG CAPSULE PO ONE (06:00)
--- NOTE | 2018-03-30 06:00 | HISTORY & PHYSICAL EXAMINATION ---
Chief Complaint - Chief Complaint Chief Complaint: GI bleed History of Present Illness - Admitted From Admitted From:: Home - History Obtained From History obtained from: Pt, , ED physician Exam Limitations: Pt has advanced dementia - History of Present Illness HPI Comment/Other: Mr. Pavel Farmer is a very pleasant but highly demented male, 88 years old, with a history significant for GI bleeds for several years amongst many other comorbidities, who presented to the emergency department early this morning with hematemesis. While in the ED the patient also had a large maroon colored stool which was guaiac positive. According to his , he was supposed to follow-up with a doctor in [place] for an endoscopy of some sort but this somehow fell through the cracks- it's unclear when. His hemoglobin on admission is 7.5 and we will transfuse him 2 units of packed red blood cells. We will ask general surgery to evaluate the patient for possible endoscopy. We will address his multiple comorbidities while he is inpatient. History - Past Medical History Cardiovascular: reports: Hypertension, Murmur Respiratory: reports: None Neuro: reports: Dementia Endocrine/Autoimmune: reports: None GI: reports: GERD, GI bleed, Hiatal hernia, Colon polyps : reports: Incontinence, Other HEENT: reports: None Psych: reports: Depression Musculoskeletal: reports: Osteoarthritis, Fatigue Derm: reports: Other MRSA Hx?: No - Past Surgical History General: reports: Colonoscopy Ortho: reports: Knee replacement HEENT: reports: Cataracts - Family & Social History Family History: Mother: , CAD, Hyperlipidemia, Hypertension, ID, Father : , Cancer Family History Comment/Other: No known family history of diabetes mellitus or strokes Living arrangement: At home Living Situation: With spouse/s.o. Social History Notes: The patient is highly demented and his main caregiver is his elderly . - Substance History Use: Uses substance without health or social issues: Alcohol Abuse: Recurrent use of substance despite neg consequences: NONE Dependence: Experiences withdrawal or developed tolerances: NONE - POLST Patient has POLST: Yes POLST Status: DNR Meds/Allgy - Home Medications Home Medications: Ambulatory Orders Medication Instructions Recorded Confirmed Aspirin [Aspirin EC] 81 mg PO DAILY 01/04/17 01/04/17 Ferrous Sulfate [Feosol] 325 mg PO BIDWM #60 tablet 01/05/17 Omeprazole 1 cap PO DAILY 02/19/18 02/19/18 Bimatoprost 0.01% Ophth Dops 1 drops EACHEYE DAILY 03/30/18 03/30/18 [Lumigan 0.01% Ophth Drops] Escitalopram [Lexapro] 10 mg PO DAILY 03/30/18 03/30/18 Furosemide [Lasix] 40 mg PO DAILY 03/30/18 03/30/18 Metoprolol Succinate [Toprol Xl] 50 mg PO 03/30/18 03/30/18 Potassium Chloride 10 meq PO 03/30/18 Tamsulosin [Flomax] 0.4 mg PO ONCE 03/30/18 03/30/18 hydrOXYzine HCl [Hydroxyzine HCl] 25 mg PO 03/30/18 - Allergies Allergies/Adverse Reactions: Allergies Allergy/AdvReac Type Severity Reaction Status Date / Time No Known Drug Allergies Allergy Verified 03/30/18 03:54 Review of Systems - Constitutional Constitutional: reports: Other (The patient is very demented nonverbal and his notes that he has been even less verbal over the last few weeks, and has begun growling in lieu of answering questions. He therefore cannot participate in review of systems; all pertinent positives are per the patient's or ER staff.). denies: Fever, Chills, Night sweats - Eyes Eyes: reports: Corrective lenses - Ears, Nose & Throat Ears, Nose & Throat: reports: Hearing loss, Dentures. denies: Vertigo, Nasal discharge, Nosebleeds - Cardiovascular Cariovascular: denies: Edema, Syncope, Orthopnea - Respiratory Respiratory: denies: Cough, Sputum production, Hemoptysis, SOB at rest, Stridor - Gastrointestinal Gastrointestinal: reports: Rectal bleeding, Bloody stools, Vomiting, [place] blood emesis - Genitourinary Genitourinary: denies: Hematuria, Urethral discharge - Musculoskeletal Musculoskeletal: reports: Stiffness, Limited range of motion. denies: Gout, Joint swelling - Integumentary Integumentary: reports: Dryness. denies: Rash, Pigment changes - Neurological Neurological: reports: General weakness. denies: Focal weakness, Seizures - Psychiatric Psychiatric: reports: Depression. denies: Hallucinations - Endocrine Endocrine: denies: Intolerance to cold, Intolerance to heat - Hematologic/Lymphatic Hematologic/Lymphatic: reports: Anemia, Bleeding tendencies. denies: Bruising, Petechiae, Lymphadenopathy - All Other Systems All Other Systems: reports: Reviewed and negative Exam - Vital Signs Reviewed Vital Signs: Yes Vital Signs: Vital Signs x48h Temp Pulse Resp BP Pulse Ox 03/30/18 05:33 82 18 86/53 L 99 03/30/18 05:17 79 19 84/52 L 99 03/30/18 04:56 75 22 83/57 L 99 03/30/18 04:33 79 18 97/54 L 99 03/30/18 04:10 85/56 L 03/30/18 04:06 82 18 83/64 L 99 03/30/18 04:00 83 25 H 101/49 L 100 03/30/18 03:50 36.6 C 82 28 H 106/52 L 99 - Physical Exam General Appearance: positive: No acute distress, Alert Eyes Bilateral: positive: Normal inspection, PERRL, EOMI, No lid inflammation, No scleral icterus. negative: Conjunctivae nml (Conjunctiva pale) ENT: positive: ENT inspection nml, Pharynx nml, No signs of dehydration, Other ( Dried blood to the patient's lips and around his mouth.) Neck: positive: Nml inspection, Thyroid nml, No JVD, Trachea midline. negative : Thyromegaly Respiratory: positive: Chest non-tender, No respiratory distress, Breath sounds nml. negative: Wheezes, Rales, Rhonchi Cardiovascular: positive: Regular rate & rhythm, No gallop. negative: No murmur (1/6 MICHELLE) Peripheral Pulses: positive: 1+ Abdomen: positive: Non-tender, No organomegaly, Nml bowel sounds, No distention. negative: Guarding, Rebound Rectal: positive: Stool - heme POS, Bloody stool, Enlarged prostate Skin: positive: No rash, Warm, Dry, Pallor. negative: Laceration (cm) Extremities: positive: Non-tender, Nml appearance, Pedal edema. negative: Joint swelling Neurologic/Psychiatric: positive: Disoriented to person, Disoriented to place, Disoriented to time, Other (The patient sometimes gets his name right but is not oriented to place or time. He has advanced dementia.) Conclusion/Plan - Problem List (1) Hematemesis/vomiting blood Conclusion/Plan: The patient has an extensive history of GI bleeds and was supposed to have an endoscopy of some sort in [place] but failed to follow-up. We will admit him to the hospital, transfuse 2 units of packed red blood cells, and obtain a surgical consultation for probable endoscopy. We will start him on around-the- clock PPI. Qualifiers: Nausea presence: unspecified Qualified Code(s): K92.0 - Hematemesis (2) Dementia Conclusion/Plan: Advanced, the patient is not on any medications for his dementia. I will ask social work to investigate his home environment as his elderly is his only caregiver. He may need placement following this hospitalization. Qualifiers: Dementia type: unspecified type Dementia behavioral disturbance: without behavioral disturbance Qualified Code(s): F03.90 - Unspecified dementia without behavioral disturbance (3) GERD (gastroesophageal reflux disease) Conclusion/Plan: We are holding the patient's omeprazole and will start him on Protonix, IV push , twice daily. (4) Depression Conclusion/Plan: We will continue the patient on his home Lexapro. He is not on any medications for his advanced dementia. (5) Glaucoma Conclusion/Plan: We will continue the patient on his bimatoprost ophthalmic drops. (6) BPH (benign prostatic hyperplasia) Conclusion/Plan: We will continue the patient on his Flomax. (7) CKD (chronic kidney disease) stage 3, GFR 30-59 ml/min Conclusion/Plan: The patient's creatinine on admission was 1.8. Suspect prerenal etiology. His creatinine typically is lower, around 1-1.3. We will gently rehydrate as he has a history of fluid overload and ankle edema and monitor his creatinine closely. - Lab Results Lab results reviewed: Yes Fish Bones: 03/30/18 03:53 03/30/18 03:53 - EKG Results EKG Interpreted Independently: Yes EKG Comparison: Old EKG unavailable (Normal sinus rhythm with multifocal PVCs) Core Measures - Anticipated LOS I expect patient to be DC'd or transferred within 96 hours.: Yes - DVT/VTE - Prophylaxis VTE/DVT Device ordered at admit?: Yes
[2018-03-30] MEDS ORDERED: SODIUM CHLORIDE 0.9% 1,000 ML IV ONE ×4 (07:39→16:07)
--- NOTE | 2018-03-30 07:50 | PROVIDER PROGRESS NOTE ---
Hospitalist Cross-cover Note - Cross-Cover Note Cross-Cover Note: I spoke with Clara Soler the patients over the phone to inform her that patient needs blood as he is hypotensive and having large maroon bowel movements. She consented to him getting blood over the phone and wants us to do what we can to save his life. She said he has had 6 units of packed red blood cells in the past.
[2018-03-30] MEDS: PANTOPRAZOLE 40 MG VIAL IVP SCH ×2 (07:53→17:14)
[2018-03-30 08:19] LABS: BASOPHILS % (AUTO) 0.4 %; EOSINOPHILS # (AUTO) 0.1 10^3/uL (0.0-0.7); EOSINOPHILS % (AUTO) 0.5 %; HGB - HEMOGLOBIN 7.8 g/dL (14.0-18.0); LYMPHOCYTES # (AUTO) 2.1 10^3/uL (1.5-3.5); MEAN CORPUSCULAR HEMOGLOBIN 34.6 pg (27.0-31.0); MEAN CORPUSCULAR HGB CONC 33.2 g/dL (32.0-36.0); MEAN CORPUSCULAR VOLUME 104.2 fL (80.0-94.0); MEAN PLATELET VOLUME 9.5 fL (7.4-11.4); MONOCYTES # (AUTO) 0.9 10^3/uL (0.0-1.0); MONOCYTES % (AUTO) 8.5 %; NEUTROPHILS # (AUTO) 7.5 10^3/uL (1.5-6.6); NEUTROPHILS % (AUTO) 70.6 %; PLT - PLATELET COUNT 115 10^3/uL (130-450); RED BLOOD COUNT 2.26 10^6/uL (4.70-6.10); RED CELL DISTRIBUTION WIDTH 14.4 % (12.0-15.0); WHITE BLOOD COUNT 10.6 x10^3/uL (4.8-10.8)
[2018-03-30] MEDS ORDERED: hydrOXYzine PAMOATE 25 MG CAPSULE PO PRN (09:00)
[2018-03-30] MEDS: SODIUM CHLORIDE 0.9% 1,000 ML IV SCH ×2 (09:03→17:11)
[2018-03-30] MEDS: SODIUM CHLORIDE FLUSH 0.9% 10 ML SYRINGE IVP SCH ×2 (09:04→17:44)
[2018-03-30] MEDS: FERROUS SULFATE 325 MG TABLET PO SCH ×2 (09:55→17:43)
[2018-03-30] MEDS: FUROSEMIDE 20 MG TABLET PO SCH (09:56)
[2018-03-30] MEDS: METOPROLOL SUCCINATE 50 MG TABLET PO SCH (09:56)
[2018-03-30] MEDS: ESCITALOPRAM 10 MG TABLET PO SCH (09:56)
[2018-03-30] MEDS: POTASSIUM CHLORIDE 10 MEQ CAPSULE PO SCH (09:57)
[2018-03-30] MEDS: POLYETHYLENE GLYCOL 3350 17 GM PACKET PO SCH (09:57)
[2018-03-30] MEDS: BIMATOPROST 0.01% OPHTH DROPS 2.5 ML EACHEYE SCH (10:07)
[2018-03-30] MEDS ORDERED: SODIUM CHLORIDE 0.9% 500 ML IV ONE (13:38)
[2018-03-30] MEDS ORDERED: SOAP SUDS ENEMA 1 EACH RC ONE (13:39)
--- NOTE | 2018-03-30 13:51 | Nuclear Medicine Report ---
Procedure Date: 03/30/2018 Accession Number: [id number] / [id number] Procedure: NM - GI Bleed/Tagged RBC CPT Code: FULL RESULT: EXAM: GASTROINTESTINAL BLEED LOCALIZATION STUDY WITH VASCULAR FLOW STUDY EXAM DATE: 03/30/2018 01:27 PM. CLINICAL HISTORY: GI bleed. COMPARISON: None. TECHNIQUE: The patient's own red blood cells were labeled with 27.5 mCi Tc-99m pertechnetate according to department protocol. Following the administration of the radiolabeled red blood cells, dynamic flow images were acquired for the initial 2 minutes. Next, dynamic gamma camera imaging for a total of 60 minutes post injection was acquired from the anterior projection. Lateral images were also acquired. FINDINGS: There is abnormal linear activity in the rectum. No other finding suspicious for active GI bleed. Physiological uptake in vasculature, spleen, liver, and bladder. IMPRESSION: GI bleed likely originating in the rectum. RADIA The call report notification system was initiated by Dr. Vitor Rainey at 13:48 hrs on 03/30/18. The above findings were discussed with Dr. Bentley by Dr. Vitor Rainey at 13:50 hrs on 03/30/18.
[2018-03-30 13:57] LABS: BASOPHILS # (AUTO) 0.1 10^3/uL (0.0-0.1); BASOPHILS % (AUTO) 0.9 %; EOSINOPHILS # (AUTO) 0.2 10^3/uL (0.0-0.7); EOSINOPHILS % (AUTO) 2.5 %; HGB - HEMOGLOBIN 9.8 g/dL (14.0-18.0); LYMPHOCYTES # (AUTO) 2.1 10^3/uL (1.5-3.5); MEAN CORPUSCULAR HEMOGLOBIN 33.8 pg (27.0-31.0); MEAN CORPUSCULAR HGB CONC 33.3 g/dL (32.0-36.0); MEAN CORPUSCULAR VOLUME 101.4 fL (80.0-94.0); MEAN PLATELET VOLUME 9.2 fL (7.4-11.4); MONOCYTES # (AUTO) 0.7 10^3/uL (0.0-1.0); MONOCYTES % (AUTO) 8.5 %; NEUTROPHILS # (AUTO) 5.5 10^3/uL (1.5-6.6); NEUTROPHILS % (AUTO) 64.1 %; PLT - PLATELET COUNT 101 10^3/uL (130-450); RED BLOOD COUNT 2.89 10^6/uL (4.70-6.10); RED CELL DISTRIBUTION WIDTH 15.9 % (12.0-15.0); WHITE BLOOD COUNT 8.6 x10^3/uL (4.8-10.8)
[2018-03-30 14:02] LABS: INR 1.5 (0.8-1.2); PT - PROTHROMBIN TIME 16.2 secs (9.9-12.6)
[2018-03-30] MEDS ORDERED: SIMETHICONE 40 MG/0.6 ML 30 ML BOTTLE ONE (14:12)
[2018-03-30] MEDS ORDERED: LIDO GARGLE 30 ML BOTTLE ONE (14:20)
[2018-03-30] MEDS ORDERED: EPINEPHrine ABBOJECT 1 MG/10 ML SYRINGE ONE (14:33)
[2018-03-30] MEDS ORDERED: KETAMINE 500 MG/10 ML VIAL IVP ONE (14:50)
[2018-03-30] MEDS ORDERED: MIDAZOLAM 2 MG/2 ML VIAL IVP ONE (14:50)
[2018-03-30] MEDS ORDERED: PROPOFOL 200 MG/20 ML VIAL IVP ONE (14:50)
[2018-03-30] MEDS ORDERED: GLUCAGON 1 MG/ML VIAL IM ONE (14:50)
--- NOTE | 2018-03-30 16:55 | PROVIDER PROGRESS NOTE ---
Subjective - Prog Note Date Prog Note Date: 03/30/18 Prog Note Time: 12:00 - Subjective Pt reports feeling: Worse (Patient has dementia and unable to provide any history but is having continuous bloody bowel movement and has become hypotensive and tachycardic.) Current Medications - Current Medications Current Medications: Active Medications Generic Name Dose Route Start Last Admin Trade Name Freq PRN Reason Stop Dose Admin Bimatoprost 1 drops 03/30/18 09:00 03/30/18 10:07 Lumigan 0.01% Ophth Drops EACHEYE 1 drops DAILY DAVE Administration Escitalopram Oxalate 10 mg 03/30/18 09:00 03/30/18 09:56 Lexapro PO Not Given DAILY DAVE Ferrous Sulfate 325 mg 03/30/18 08:00 03/30/18 09:55 Feosol PO Not Given BIDWM DAVE Furosemide 40 mg 03/30/18 09:00 03/30/18 09:56 Lasix PO Not Given DAILY DAVE Hydroxyzine Pamoate 25 mg 03/30/18 09:00 Vistaril PO Q6H PRN ITCHING Sodium Chloride 1,000 mls @ 125 mls/hr 03/30/18 08:00 03/30/18 13:17 Normal Saline 0.9% IV 03/30/18 23:59 125 mls/hr .Q8H DAVE Infusion Metoprolol Succinate 25 mg 03/30/18 09:00 03/30/18 09:56 Toprol Xl PO Not Given DAILY DAVE Oxycodone HCl 5 mg 03/30/18 05:48 Roxicodone PO Q4HR PRN Pain 5 to 7 Pantoprazole Sodium 40 mg 03/30/18 07:00 03/30/18 07:53 Protonix IVP 40 mg BIDAC DAVE Administration Polyethylene Glycol 17 gm 03/30/18 09:00 03/30/18 09:57 Miralax PO Not Given DAILY DAVE Potassium Chloride 10 meq 03/30/18 09:00 03/30/18 09:57 Micro-K PO Not Given DAILY DAVE Prochlorperazine Edisylate 10 mg 03/30/18 05:48 Compazine Inj IVP Q6HR PRN Nausea / Vomiting Sodium Chloride 10 ml 03/30/18 05:48 Normal Saline Flush 0.9% IVP PRN PRN NEEDED PER PROVIDER ORDERS Sodium Chloride 10 ml 03/30/18 09:00 03/30/18 09:04 Normal Saline Flush 0.9% IVP 10 ml 0100,0900,1700 DAVE Administration Aspirin [Aspirin EC] 81 mg PO DAILY 01/04/17 Omeprazole 20 mg PO BID 02/19/18 Bimatoprost 0.01% Ophth Dops [Lumigan 0.01% Ophth Drops] 1 drops EACHEYE DAILY 03/30/18 Escitalopram [Lexapro] 10 mg PO DAILY 03/30/18 Furosemide [Lasix] 40 mg PO DAILY 03/30/18 Metoprolol Succinate [Toprol Xl] 25 mg PO DAILY 03/30/18 Potassium Chloride 10 meq PO DAILY 03/30/18 Tamsulosin [Flomax] 0.4 mg PO DAILY 03/30/18 hydrOXYzine HCl [Hydroxyzine HCl] 25 mg PO DAILY 03/30/18 Objective - Vital Signs/Intake & Output Reviewed Vital Signs: Yes Vital Signs: Vital Signs Temp Pulse Pulse Resp BP BP Pulse Ox 03/30/18 16:12 75 19 109/52 L 97 03/30/18 14:00 78 20 87/49 L 98 03/30/18 13:18 36.9 C 77 17 118/65 03/30/18 13:00 76 19 95/50 L 98 Intake & Output: Intake & Output 03/27/18 03/28/18 03/29/18 03/30/18 23:59 23:59 23:59 23:59 Intake Total 2862.083 Balance 2862.083 - Objective General Appearance: positive: No acute distress, Alert, Other (Pale appearing, demented) Eyes Bilateral: positive: Normal inspection, PERRL, EOMI, No lid inflammation, Other (Dry mucus membranes, conjunctival pallor) ENT: positive: ENT inspection nml, Pharynx nml, Dry mucous membranes. negative : Purulent nasal drainage, Pharyngeal erythema, Oral lesions Neck: positive: Nml inspection, Thyroid nml, No JVD, Trachea midline. negative : Thyromegaly, Lymphadenopathy (R), Lymphadenopathy (L), Stiff neck, Carotid bruit, Tracheal deviation Respiratory: positive: Chest non-tender, No respiratory distress, Breath sounds nml. negative: Wheezes, Rales, Rhonchi Cardiovascular: positive: Regular rate & rhythm, No murmur, No gallop Abdomen: positive: Non-tender, No organomegaly, No distention. negative: Guarding, Rebound Back: positive: Nml inspection. negative: CVA tenderness (R), CVA tenderness (L ) Skin: positive: Color nml, No rash, Dry, Pallor. negative: Cyanosis, Diaphoresis Extremities: positive: Non-tender, Full ROM, Nml appearance, No pedal edema Neurologic/Psychiatric: positive: CN's nml (2-12), Motor nml, Sensation nml, Disoriented to place, Disoriented to time - Lab Results Fish Bones: 03/30/18 13:50 03/30/18 03:53 Other Labs: Lab Results x24hrs 03/30/18 03/30/18 03/30/18 Range/Units 13:50 13:50 08:08 WBC 8.6 10.6 (4.8-10.8) x10^3/uL RBC 2.89 L 2.26 L (4.70-6.10) 10^6/uL Hgb 9.8 L 7.8 L (14.0-18.0) g/dL Hct 29.3 L 23.5 L (42.0-52.0) % MCV 101.4 H 104.2 H (80.0-94.0) fL MCH 33.8 H 34.6 H (27.0-31.0) pg MCHC 33.3 33.2 (32.0-36.0) g/dL RDW 15.9 H 14.4 (12.0-15.0) % Plt Count 101 L 115 L (130-450) 10^3/uL MPV 9.2 9.5 (7.4-11.4) fL Neut # (Auto) 5.5 7.5 H (1.5-6.6) 10^3/uL Lymph # (Auto) 2.1 2.1 (1.5-3.5) 10^3/uL [place] # (Auto) 0.7 0.9 (0.0-1.0) 10^3/uL Eos # (Auto) 0.2 0.1 (0.0-0.7) 10^3/uL Baso # (Auto) 0.1 0.0 (0.0-0.1) 10^3/uL Absolute Nucleated RBC 0.00 0.00 x10^3/uL Nucleated RBC % 0.0 0.0 /100WBC PT 16.2 H (9.9-12.6) secs INR 1.5 H (0.8-1.2) - Diagnostic Imaging Diagnostic Imaging Results: positive: Final report reviewed Diagnostic Imaging Comments: Tagged RBC scan Impression: GI bleed likely originating in the rectum Assessment/Plan - Problem List (1) Lower GI bleed Impression: Patient initially presented with hematemesis but since being admitted developed persistent bloody stools. Patient became hypotensive and tachycardic and had to be transferred to the intensive care unit. He underwent a tagged RBC scan which showed bleeding originating from the rectum. Patient was given a bowel prep with enema and taken urgently to the OR for EGD and colonoscopy. Surgery found that the patient had a large rectal ulcer which was clipped. Patient was also found to have esophageal varices that were nonbleeding. Patient had large amounts of blood around the ulcer which was irrigated. Patient was transfused 4 units of packed RBCs and hemoglobin is now up to 9.8. Patient still has a soft blood pressure but appears to have stopped bleeding. He will remain in the intensive care unit overnight for close monitoring. (2) Dementia Impression: Patient has severe dementia and is taken care of by his elderly . We discussed with social work today that patient will likely need placement posthospitalization as the patient's is having difficulty taking care of him. Qualifiers: Dementia type: unspecified type Dementia behavioral disturbance: without behavioral disturbance Qualified Code(s): F03.90 - Unspecified dementia without behavioral disturbance (3) BPH (benign prostatic hyperplasia) Impression: Patient continued on Flomax Stable (4) CKD (chronic kidney disease) stage 3, GFR 30-59 ml/min Impression: Patient has CKD stage III with a creatinine of 1.8 which is slightly elevated from his baseline of 1.3. Likely patient has acute on chronic renal failure secondary to active bleeding and dehydration. Patient has been given IV fluids and packed RBCs will continue to monitor his creatinine and expect it will improve. Will avoid all nephrotoxic agents per
[2018-03-30] MEDS ORDERED: MIN OIL/DIMETHICON/COCONUT OIL 92 GM TUBE TOP ONE (18:39)
[2018-03-31 02:14] LABS: BASOPHILS # (AUTO) 0.1 10^3/uL (0.0-0.1); BASOPHILS % (AUTO) 0.7 %; EOSINOPHILS # (AUTO) 0.3 10^3/uL (0.0-0.7); EOSINOPHILS % (AUTO) 3.8 %; LYMPHOCYTES # (AUTO) 1.6 10^3/uL (1.5-3.5); LYMPHOCYTES % (AUTO) 20.1 %; MEAN CORPUSCULAR HEMOGLOBIN 33.6 pg (27.0-31.0); MEAN CORPUSCULAR HGB CONC 34.1 g/dL (32.0-36.0); MEAN CORPUSCULAR VOLUME 98.6 fL (80.0-94.0); MONOCYTES # (AUTO) 0.7 10^3/uL (0.0-1.0); MONOCYTES % (AUTO) 9.3 %; NEUTROPHILS # (AUTO) 5.2 10^3/uL (1.5-6.6); NEUTROPHILS % (AUTO) 66.1 %; PLT - PLATELET COUNT 75 10^3/uL (130-450); RED BLOOD COUNT 2.98 10^6/uL (4.70-6.10); RED CELL DISTRIBUTION WIDTH 16.1 % (12.0-15.0); WHITE BLOOD COUNT 7.8 x10^3/uL (4.8-10.8)
[2018-03-31] MEDS: SODIUM CHLORIDE FLUSH 0.9% 10 ML SYRINGE IVP SCH ×3 (03:13→15:51)
[2018-03-31] MEDS: SODIUM CHLORIDE FLUSH 0.9% 10 ML SYRINGE IVP PRN ×3 (03:54→20:20)
[2018-03-31 05:23] LABS: BASOPHILS # (AUTO) 0.1 10^3/uL (0.0-0.1); BASOPHILS % (AUTO) 1.1 %; EOSINOPHILS # (AUTO) 0.3 10^3/uL (0.0-0.7); EOSINOPHILS % (AUTO) 4.6 %; LYMPHOCYTES # (AUTO) 1.5 10^3/uL (1.5-3.5); LYMPHOCYTES % (AUTO) 21.5 %; MEAN CORPUSCULAR HEMOGLOBIN 33.4 pg (27.0-31.0); MEAN CORPUSCULAR HGB CONC 33.8 g/dL (32.0-36.0); MEAN CORPUSCULAR VOLUME 98.9 fL (80.0-94.0); MEAN PLATELET VOLUME 8.9 fL (7.4-11.4); MONOCYTES # (AUTO) 0.6 10^3/uL (0.0-1.0); MONOCYTES % (AUTO) 8.4 %; NEUTROPHILS # (AUTO) 4.4 10^3/uL (1.5-6.6); NEUTROPHILS % (AUTO) 64.4 %; PLT - PLATELET COUNT 74 10^3/uL (130-450); RED BLOOD COUNT 2.98 10^6/uL (4.70-6.10); RED CELL DISTRIBUTION WIDTH 16.1 % (12.0-15.0); WHITE BLOOD COUNT 6.8 x10^3/uL (4.8-10.8)
[2018-03-31 05:31] LABS: ALBUMIN 2.4 g/dL (3.2-5.5); ALBUMIN/GLOBULIN RATIO 0.9 (1.0-2.2); ALKALINE PHOSPHATASE 73 IU/L (42-121); ALT ALANINE AMINOTRANSFERASE 27 IU/L (10-60); AST ASPARTATE AMINOTRANSFERASE 40 IU/L (10-42); BILIRUBIN,TOTAL 2.4 mg/dL (0.2-1.0); BUN - BLOOD UREA NITROGEN 52 mg/dL (6-20); CARBON DIOXIDE - CO2 22 mmol/L (21-32); CHLORIDE 111 mmol/L (101-111); CREATININE 1.5 mg/dL (0.6-1.2); GFR - MDRD 44 (>89); GLUCOSE 95 mg/dL (70-100); MAGNESIUM 1.5 mg/dL (1.7-2.8); PHOSPHORUS 3.1 mg/dL (2.5-4.6); SODIUM 142 mmol/L (135-145); TOTAL PROTEIN 5.1 g/dL (6.7-8.2)
[2018-03-31 05:34] LABS: VBG PH 7.412 (7.31-7.41)
[2018-03-31] MEDS ORDERED: MAGNESIUM SULFATE 2 GRAM 2 GM/50 ML BAG IV ONE (05:48)
[2018-03-31] MEDS: PANTOPRAZOLE 40 MG VIAL IVP SCH ×2 (06:18→15:51)
[2018-03-31] MEDS: POTASSIUM CHLORIDE 10 MEQ CAPSULE PO SCH (08:11)
[2018-03-31] MEDS: ESCITALOPRAM 10 MG TABLET PO SCH (08:12)
[2018-03-31] MEDS: FERROUS SULFATE 325 MG TABLET PO SCH ×2 (08:12→18:02)
[2018-03-31] MEDS: FUROSEMIDE 20 MG TABLET PO SCH (08:12)
[2018-03-31] MEDS: BIMATOPROST 0.01% OPHTH DROPS 2.5 ML EACHEYE SCH (08:19)
[2018-03-31] MEDS: POLYETHYLENE GLYCOL 3350 17 GM PACKET PO SCH (08:20)
[2018-03-31] MEDS: METOPROLOL SUCCINATE 50 MG TABLET PO SCH (10:07)
--- NOTE | 2018-03-31 12:42 | Discharge Plan ---
"Discharge Plan for SNF / [facility] - DC Plan and Transition Orders Disposition: 03 SNF DC/Xfer Condition: Poor SNF Transition Orders: Admit to: [Facility] under the care of [Doctor Name] Discharge Diagnosis: [] Medicare Certification: I certify that Post Hospital intermediate care is medically necessary on a continuing basis for any of the conditions for which she/he is receiving care during hospitalization. Notify PCP of admission and forward orders to primary provider for signature. Weight on admission and [Daily/Weekly/Monthly]. Call PCP immediately if weight increases by [Number] pounds or if patient develops dyspnea, chest pain/ tightness or edema. House Bowel Program: [Yes/No] If no BM after 2 days, nurse may give M.O.M. 30ml PO PRN and /or ducolax Supp 1 MA and /or TOM 250mg P.O., and/or senna 1-2 tabs PO. On day 3 nurse may give repeat above order until residents constipation is resolved. Immunizations: Annual Influenza Vaccine: [Yes/No]. (between Jun 06 and January 03.) Unless allergy or already given Two-Step PPD: [Yes/No] per [facility] 248-235 or appropriate documentation of approved exceptions Treatments & Other Orders: [] Oxygen Orders: [] Lab Tests or X-Rays Orders: [] Orthopedic Orders: [Remove Sutures/Jennifer and Comment]. Medications: PLEASE REFER TO THE DISCHARGE MEDICATION LIST. Insulin Orders? [Yes/No] Diagnosis: Diabetes Initiate hypo and hyperglycemia protocols for BG <70 and BG >375. May check BG prn for signs/symptoms of dysglycemia. Frequency of BG checks: [AC/Meal/HS] Basal Insulin: [] Lantus 100 units / ml inject subq as follows: [] [] Other: [] Correction Insulin: - Select the type of insulin below [Choose: Novolog/Humalog]100 units /ml insulin inject subq per orders indicate below [] LOW DOSE [] MODERATE DOSE [] MODERATE/HIGH DOSE [] HIGH DOSE GB UNITS GB UNITS GB UNITS GB UNITS 61-140 0 UNITS 61-140 0 UNITS 61-140 0 UNITS 61-140 0 UNITS 141-175 1 UNITS 141-175 1 UNITS 141-175 2 UNITS 141-175 3 UNITS 176-225 2 UNITS 176-225 3 UNITS 176-225 4 UNITS 176-225 5 UNITS 226-275 3 UNITS 226-275 5 UNITS 226-275 6 UNITS 226-275 7 UNITS 276-325 4 UNITS 276-325 7 UNITS 276-325 8 UNITS 276-325 9 UNITS 326-375 5 UNITS 326-375 9 UNITS 326-375 10 UNITS 326-375 11 UNITS >375 CONTACT MD >375 CONTACT MD >375 CONTACT MD >375 CONTACT MD Custom Dosing: [Choose: None/Novolog/Humalog] 100 units/ml Insulin inject subq as follows: GB Units 61-140 [] Units 141-175 [] Units 176-225 [] Units 226-275 [] Units 276-325 []Units 326-375 [] Units >375 Contact MD Allergies and Adverse Reactions: Allergies Allergy/AdvReac Type Severity Reaction Status Date / Time No Known Drug Allergies Allergy Verified 03/30/18 03:54 - Medications New Prescriptions: Docusate Sodium 250Mg Capsule [Colace 250Mg Capsule] 250 mg PO BID #60 capsule Polyethylene Glycol 3350 [Miralax] 17 gm PO DAILY #30 packet - Diet Type: High fiber diet Texture: Mech soft Liquids: Thin May have monthly special meal: Yes - Therapies | Activity Therapy: Evaluation | Treat if indicated: PT, OT Rehabilitation Potential: Maximize functional status Activity: Activity as Tolerated"
--- NOTE | 2018-03-31 14:42 | PROVIDER PROGRESS NOTE ---
Subjective - General Admit Date: 03/30/18 Procedure Date: 03/30/18 Post Op Days: 1 - Review of Systems Gastrointestinal: positive: Other (no further rectal bleeding) All Other Systems: positive: Reviewed and negative Objective - Patient Data Vital Signs: Vital Signs x48h Temp Pulse Pulse Pulse Resp BP BP 03/31/18 13:00 81 23 112/72 03/31/18 11:00 85 22 135/73 H 03/31/18 10:15 96 89 141/63 H 03/31/18 10:00 80 21 145/74 H 03/31/18 09:00 37.0 C 84 23 129/65 03/31/18 08:00 82 22 115/67 03/31/18 07:00 78 23 120/90 H BP Pulse Ox 03/31/18 13:00 03/31/18 11:00 96 03/31/18 10:15 153/75 H 03/31/18 10:00 03/31/18 09:00 03/31/18 08:00 98 03/31/18 07:00 97 Weight: Weight 03/29/18 03/30/18 03/31/18 23:59 23:59 23:59 Weight (kg) 97.5 kg Intake & Output: Intake and Output Totals x24h 03/29/18 03/30/18 03/31/18 23:59 23:59 23:59 Intake Total 4888.666 1996.7 Output Total 0 Balance 4888.666 1996.7 - Lab Results Lab Results: 03/31/18 05:07 03/31/18 05:07 Other Lab Results: Lab Results x24hrs 03/31/18 03/31/18 03/31/18 Range/Units 05:07 05:07 05:07 WBC 6.8 (4.8-10.8) x10^3/uL RBC 2.98 L (4.70-6.10) 10^6/uL Hgb 10.0 L (14.0-18.0) g/dL Hct 29.5 L (42.0-52.0) % MCV 98.9 H (80.0-94.0) fL MCH 33.4 H (27.0-31.0) pg MCHC 33.8 (32.0-36.0) g/dL RDW 16.1 H (12.0-15.0) % Plt Count 74 L (130-450) 10^3/uL MPV 8.9 (7.4-11.4) fL Neut # (Auto) 4.4 (1.5-6.6) 10^3/uL Lymph # (Auto) 1.5 (1.5-3.5) 10^3/uL [place] # (Auto) 0.6 (0.0-1.0) 10^3/uL Eos # (Auto) 0.3 (0.0-0.7) 10^3/uL Baso # (Auto) 0.1 (0.0-0.1) 10^3/uL Absolute Nucleated RBC 0.01 x10^3/uL Nucleated RBC % 0.1 /100WBC VBG pH 7.412 H (7.31-7.41) Ionized Calcium 1.11 L YES (1.15-1.33) mmol/L Sodium 142 (135-145) mmol/L Potassium 3.7 (3.5-5.0) mmol/L Chloride 111 (101-111) mmol/L Carbon Dioxide 22 (21-32) mmol/L Anion Gap 9.0 (6-13) BUN 52 H (6-20) mg/dL Creatinine 1.5 H (0.6-1.2) mg/dL Estimated GFR (MDRD) 44 L (>89) Glucose 95 (70-100) mg/dL Calcium 8.0 L (8.5-10.3) mg/dL Phosphorus 3.1 (2.5-4.6) mg/dL Magnesium 1.5 L (1.7-2.8) mg/dL Total Bilirubin 2.4 H (0.2-1.0) mg/dL AST 40 (10-42) IU/L ALT 27 (10-60) IU/L Alkaline Phosphatase 73 (42-121) IU/L Total Protein 5.1 L (6.7-8.2) g/dL Albumin 2.4 L (3.2-5.5) g/dL Globulin 2.7 (2.1-4.2) g/dL Albumin/Globulin Ratio 0.9 L (1.0-2.2) 03/31/18 Range/Units 02:02 WBC 7.8 (4.8-10.8) x10^3/uL RBC 2.98 L (4.70-6.10) 10^6/uL Hgb 10.0 L (14.0-18.0) g/dL Hct 29.4 L (42.0-52.0) % MCV 98.6 H (80.0-94.0) fL MCH 33.6 H (27.0-31.0) pg MCHC 34.1 (32.0-36.0) g/dL RDW 16.1 H (12.0-15.0) % Plt Count 75 L (130-450) 10^3/uL MPV 9.0 (7.4-11.4) fL Neut # (Auto) 5.2 (1.5-6.6) 10^3/uL Lymph # (Auto) 1.6 (1.5-3.5) 10^3/uL [place] # (Auto) 0.7 (0.0-1.0) 10^3/uL Eos # (Auto) 0.3 (0.0-0.7) 10^3/uL Baso # (Auto) 0.1 (0.0-0.1) 10^3/uL Absolute Nucleated RBC 0.00 x10^3/uL Nucleated RBC % 0.0 /100WBC VBG pH (7.31-7.41) Ionized Calcium (1.15-1.33) mmol/L Sodium (135-145) mmol/L Potassium (3.5-5.0) mmol/L Chloride (101-111) mmol/L Carbon Dioxide (21-32) mmol/L Anion Gap (6-13) BUN (6-20) mg/dL Creatinine (0.6-1.2) mg/dL Estimated GFR (MDRD) (>89) Glucose (70-100) mg/dL Calcium (8.5-10.3) mg/dL Phosphorus (2.5-4.6) mg/dL Magnesium (1.7-2.8) mg/dL Total Bilirubin (0.2-1.0) mg/dL AST (10-42) IU/L ALT (10-60) IU/L Alkaline Phosphatase (42-121) IU/L Total Protein (6.7-8.2) g/dL Albumin (3.2-5.5) g/dL Globulin (2.1-4.2) g/dL Albumin/Globulin Ratio (1.0-2.2) - Current Medications Current Medications: Current Medications Generic Name Dose Route Start Last Admin Trade Name Freq PRN Reason Stop Dose Admin Bimatoprost 1 drops 03/30/18 09:00 03/31/18 08:19 Lumigan 0.01% Ophth Drops EACHEYE 1 drops DAILY DAVE Administration Escitalopram Oxalate 10 mg 03/30/18 09:00 03/31/18 08:12 Lexapro PO 10 mg DAILY DAVE Administration Ferrous Sulfate 325 mg 03/30/18 08:00 03/31/18 08:12 Feosol PO 325 mg BIDWM DAVE Administration Furosemide 40 mg 03/30/18 09:00 03/31/18 08:12 Lasix PO 40 mg DAILY DAVE Administration Metoprolol Succinate 25 mg 03/30/18 09:00 03/31/18 10:07 Toprol Xl PO 25 mg DAILY DAVE Administration Pantoprazole Sodium 40 mg 03/30/18 07:00 03/31/18 06:18 Protonix IVP 40 mg BIDAC DAVE Administration Polyethylene Glycol 17 gm 03/30/18 09:00 03/31/18 08:20 Miralax PO Not Given DAILY DAVE Potassium Chloride 10 meq 03/30/18 09:00 03/31/18 08:11 Micro-K PO 10 meq DAILY DAVE Administration Sodium Chloride 10 ml 03/30/18 05:48 03/31/18 03:54 Normal Saline Flush 0.9% IVP 10 ml PRN PRN Administration NEEDED PER PROVIDER ORDERS Sodium Chloride 10 ml 03/30/18 09:00 03/31/18 08:20 Normal Saline Flush 0.9% IVP 10 ml 0100,0900,1700 DAVE Administration - Physical Exam Abdomen: positive: Other (soft nt) Impression/Plan - Problem List Problem List: Mr. Soler had a lower gi bleed seen on bleeding scan. He had a colonoscopy yesterday finding the colon distally full of blood clots. He was not actively bleeding at the time. There was an ulcer in the rectum with visible vessel being present. This was clipped. He has no further bleeding since then with hgb today at 10. He has internal hemorrhoids and unknown if this has contributed to is chronic rectal bleeding. -low residual diet for next 2 weeks, stool softners and avoid constipation. He has what appears to be esophageal varices on EGD not bleeding at this time. Does he have liver cirrhosis. He does have and enlarged spleen, elevated inr and intermittent elevations in lfts. -Recommend u/s to evaluate portal vein flow. -f/u with liver specialist. -f/u in surgical clinic after that visit.
--- NOTE | 2018-03-31 16:13 | PROVIDER PROGRESS NOTE ---
Assessment/Plan - Problem List (1) Hypotension Assessment/Plan: Resolved after transfusion of PRBCs and rectal lesion was found and clipped at surgery yesterday. (2) Lower GI bleed Assessment/Plan: Rectal lesion was treated. H/H are stable after last transfusion. Dr Kathia Ivy advised to avoid constipation, start high fiber diet, Miralax and Colace daily. Monitor daily CBC. Will order OOB to chair and to start Physical Therapy, then poss SNF after this admission. (3) Dementia Qualifiers: Dementia type: unspecified type Dementia behavioral disturbance: without behavioral disturbance Qualified Code(s): F03.90 - Unspecified dementia without behavioral disturbance Assessment/Plan: Stable poor memory, but not on treatment. (4) BPH (benign prostatic hyperplasia) Assessment/Plan: Pt on Flomax. (5) CKD (chronic kidney disease) stage 3, GFR 30-59 ml/min Assessment/Plan: Slightly improve creat, after volume replaced with PRBCs yesterday. Monitor daily BMP. - Current Meds Current Meds: Current Medications Generic Name Dose Route Start Last Admin Trade Name Carlos Eduardo PRN Reason Stop Dose Admin Bimatoprost 1 drops 03/30/18 09:00 03/31/18 08:19 Lumigan 0.01% Ophth Drops EACHEYE 1 drops DAILY DAVE Administration Escitalopram Oxalate 10 mg 03/30/18 09:00 03/31/18 08:12 Lexapro PO 10 mg DAILY DAVE Administration Ferrous Sulfate 325 mg 03/30/18 08:00 03/31/18 08:12 Feosol PO 325 mg BIDWM DAVE Administration Furosemide 40 mg 03/30/18 09:00 03/31/18 08:12 Lasix PO 40 mg DAILY DAVE Administration Metoprolol Succinate 25 mg 03/30/18 09:00 03/31/18 10:07 Toprol Xl PO 25 mg DAILY DAVE Administration Pantoprazole Sodium 40 mg 03/30/18 07:00 03/31/18 15:51 Protonix IVP 40 mg BIDAC DAVE Administration Polyethylene Glycol 17 gm 03/30/18 09:00 03/31/18 08:20 Miralax PO Not Given DAILY DAVE Potassium Chloride 10 meq 03/30/18 09:00 03/31/18 08:11 Micro-K PO 10 meq DAILY DAVE Administration Sodium Chloride 10 ml 03/30/18 05:48 03/31/18 03:54 Normal Saline Flush 0.9% IVP 10 ml PRN PRN Administration NEEDED PER PROVIDER ORDERS Sodium Chloride 10 ml 03/30/18 09:00 03/31/18 15:51 Normal Saline Flush 0.9% IVP 10 ml 0100,0900,1700 DAVE Administration - Lab Result Fish Bone Diagrams: 03/31/18 05:07 03/31/18 05:07 - Additional Planning My Orders: My Active Orders 03/31/18 Evaluate and Treat PT [PT] Routine Subjective - Subjective Patient Reports: Feeling Better, Resting Comfortably Nursing Reports: No Complaints Objective Vital Signs: Vital Signs - 24 hr 03/30/18 03/30/18 03/30/18 16:12 16:30 16:47 Temperature 36.7 C Heart Rate Heart Rate [ 75 75 68 Monitoring electrodes] Heart Rate [ Sitting] Heart Rate [ Standing] Respiratory 19 16 18 Rate Blood Pressure Blood Pressure 109/52 L 117/72 68/56 L [Left Brachial artery] Blood Pressure [Right Brachial artery] Blood Pressure [Right Radial artery] Blood Pressure [Sitting] Blood Pressure [Standing] O2 Saturation 97 97 98 03/30/18 03/30/18 03/30/18 16:49 16:56 17:00 Temperature 36.7 C Heart Rate 75 Heart Rate [ 76 77 Monitoring electrodes] Heart Rate [ Sitting] Heart Rate [ Standing] Respiratory 20 20 15 Rate Blood Pressure 109/38 L Blood Pressure [Left Brachial artery] Blood Pressure 109/38 L [Right Brachial artery] Blood Pressure [Right Radial artery] Blood Pressure [Sitting] Blood Pressure [Standing] O2 Saturation 96 03/30/18 03/30/18 03/30/18 17:15 17:29 17:45 Temperature 36.8 C 36.8 C 36.9 C Heart Rate 73 72 76 Heart Rate [ Monitoring electrodes] Heart Rate [ Sitting] Heart Rate [ Standing] Respiratory 18 25 H 21 Rate Blood Pressure 135/82 H 135/82 H 101/57 L Blood Pressure [Left Brachial artery] Blood Pressure [Right Brachial artery] Blood Pressure [Right Radial artery] Blood Pressure [Sitting] Blood Pressure [Standing] O2 Saturation 03/30/18 03/30/18 03/30/18 18:00 19:00 19:46 Temperature 37.0 C Heart Rate Heart Rate [ 77 76 77 Monitoring electrodes] Heart Rate [ Sitting] Heart Rate [ Standing] Respiratory 20 14 22 Rate Blood Pressure Blood Pressure [Left Brachial artery] Blood Pressure 119/70 133/58 H 133/58 H [Right Brachial artery] Blood Pressure [Right Radial artery] Blood Pressure [Sitting] Blood Pressure [Standing] O2 Saturation 97 97 98 03/30/18 03/30/18 03/30/18 19:55 20:00 20:11 Temperature 37.0 C 36.9 C Heart Rate 77 75 Heart Rate [ 78 Monitoring electrodes] Heart Rate [ Sitting] Heart Rate [ Standing] Respiratory 23 20 22 Rate Blood Pressure 131/70 H 135/74 H Blood Pressure [Left Brachial artery] Blood Pressure 117/78 [Right Brachial artery] Blood Pressure [Right Radial artery] Blood Pressure [Sitting] Blood Pressure [Standing] O2 Saturation 98 03/30/18 03/30/18 03/30/18 20:30 21:00 22:00 Temperature 36.7 C Heart Rate 77 Heart Rate [ 79 87 Monitoring electrodes] Heart Rate [ Sitting] Heart Rate [ Standing] Respiratory 23 22 22 Rate Blood Pressure 128/72 Blood Pressure [Left Brachial artery] Blood Pressure 89/78 L 150/83 H [Right Brachial artery] Blood Pressure [Right Radial artery] Blood Pressure [Sitting] Blood Pressure [Standing] O2 Saturation 98 96 03/30/18 03/30/18 03/31/18 23:00 23:22 00:06 Temperature 37.3 C 37.3 C Heart Rate 83 Heart Rate [ 81 82 Monitoring electrodes] Heart Rate [ Sitting] Heart Rate [ Standing] Respiratory 25 H 16 23 Rate Blood Pressure 106/44 L Blood Pressure [Left Brachial artery] Blood Pressure 121/54 L [Right Brachial artery] Blood Pressure 106/79 [Right Radial artery] Blood Pressure [Sitting] Blood Pressure [Standing] O2 Saturation 99 98 03/31/18 03/31/18 03/31/18 01:00 02:00 03:00 Temperature Heart Rate Heart Rate [ 85 77 81 Monitoring electrodes] Heart Rate [ Sitting] Heart Rate [ Standing] Respiratory 23 22 25 H Rate Blood Pressure Blood Pressure [Left Brachial artery] Blood Pressure 110/92 H 112/59 L 112/54 L [Right Brachial artery] Blood Pressure [Right Radial artery] Blood Pressure [Sitting] Blood Pressure [Standing] O2 Saturation 96 97 97 03/31/18 03/31/18 03/31/18 04:00 05:00 06:00 Temperature 37.0 C Heart Rate Heart Rate [ 83 76 80 Monitoring electrodes] Heart Rate [ Sitting] Heart Rate [ Standing] Respiratory 23 21 24 Rate Blood Pressure Blood Pressure [Left Brachial artery] Blood Pressure 114/50 L 116/58 L 127/52 L [Right Brachial artery] Blood Pressure [Right Radial artery] Blood Pressure [Sitting] Blood Pressure [Standing] O2 Saturation 99 97 97 03/31/18 03/31/18 03/31/18 07:00 08:00 09:00 Temperature 37.0 C Heart Rate Heart Rate [ 78 82 84 Monitoring electrodes] Heart Rate [ Sitting] Heart Rate [ Standing] Respiratory 23 22 23 Rate Blood Pressure Blood Pressure [Left Brachial artery] Blood Pressure 120/90 H 115/67 129/65 [Right Brachial artery] Blood Pressure [Right Radial artery] Blood Pressure [Sitting] Blood Pressure [Standing] O2 Saturation 97 98 03/31/18 03/31/18 03/31/18 10:00 10:15 11:00 Temperature Heart Rate Heart Rate [ 80 85 Monitoring electrodes] Heart Rate [ 96 Sitting] Heart Rate [ 89 Standing] Respiratory 21 22 Rate Blood Pressure Blood Pressure [Left Brachial artery] Blood Pressure 145/74 H 135/73 H [Right Brachial artery] Blood Pressure [Right Radial artery] Blood Pressure 141/63 H [Sitting] Blood Pressure 153/75 H [Standing] O2 Saturation 96 03/31/18 03/31/18 13:00 15:41 Temperature 37.2 C Heart Rate Heart Rate [ 81 72 Monitoring electrodes] Heart Rate [ Sitting] Heart Rate [ Standing] Respiratory 23 22 Rate Blood Pressure Blood Pressure [Left Brachial artery] Blood Pressure 112/72 129/64 [Right Brachial artery] Blood Pressure [Right Radial artery] Blood Pressure [Sitting] Blood Pressure [Standing] O2 Saturation 97 Oxygen O2 Source Room air I&O (Last 24 Hrs): Intake and Output Totals x24h 03/29/18 03/30/18 03/31/18 23:59 23:59 23:59 Intake Total 4887. Output Total 0 Balance 488. General: Alert HEENT: Mucous membr. moist/pink Neck: Supple, No JVD Neuro: Other (Poor memeory) Cardiovascular: No murmurs Respiratory: No respiratory distress, Breath sounds nml Abdomen: Soft, No tenderness Extremities: Other (Trace edema) - Results Results: Laboratory Results WBC 6.8 x10^3/uL (4.8-10.8) 03/31/18 05:07 RBC 2.98 10^6/uL (4.70-6.10) L 03/31/18 05:07 Hgb 10.0 g/dL (14.0-18.0) L 03/31/18 05:07 Hct 29.5 % (42.0-52.0) L 03/31/18 05:07 MCV 98.9 fL (80.0-94.0) H 03/31/18 05:07 MCH 33.4 pg (27.0-31.0) H 03/31/18 05:07 MCHC 33.8 g/dL (32.0-36.0) 03/31/18 05:07 RDW 16.1 % (12.0-15.0) H 03/31/18 05:07 Plt Count 74 10^3/uL (130-450) L 03/31/18 05:07 MPV 8.9 fL (7.4-11.4) 03/31/18 05:07 Neut # (Auto) 4.4 10^3/uL (1.5-6.6) 03/31/18 05:07 Lymph # (Auto) 1.5 10^3/uL (1.5-3.5) 03/31/18 05:07 [place] # (Auto) 0.6 10^3/uL (0.0-1.0) 03/31/18 05:07 Eos # (Auto) 0.3 10^3/uL (0.0-0.7) 03/31/18 05:07 Baso # (Auto) 0.1 10^3/uL (0.0-0.1) 03/31/18 05:07 Absolute Nucleated RBC 0.01 x10^3/uL 03/31/18 05:07 Nucleated RBC % 0.1 /100WBC 03/31/18 05:07 PT 16.2 secs (9.9-12.6) H 03/30/18 13:50 INR 1.5 (0.8-1.2) H 03/30/18 13:50 APTT 29.7 secs (24.9-33.3) 03/30/18 03:53 VBG pH 7.412 (7.31-7.41) H 03/31/18 05:07 Ionized Calcium 1.11 mmol/L (1.15-1.33) L 03/31/18 05:07 Sodium 142 mmol/L (135-145) 03/31/18 05:07 Potassium 3.7 mmol/L (3.5-5.0) 03/31/18 05:07 Chloride 111 mmol/L (101-111) 03/31/18 05:07 Carbon Dioxide 22 mmol/L (21-32) 03/31/18 05:07 Anion Gap 9.0 (6-13) 03/31/18 05:07 BUN 52 mg/dL (6-20) H 03/31/18 05:07 Creatinine 1.5 mg/dL (0.6-1.2) H 03/31/18 05:07 Estimated GFR (MDRD) 44 (>89) L 03/31/18 05:07 Glucose 95 mg/dL (70-100) 03/31/18 05:07 Calcium 8.0 mg/dL (8.5-10.3) L 03/31/18 05:07 Ionized Calcium YES 03/31/18 05:07 Phosphorus 3.1 mg/dL (2.5-4.6) 03/31/18 05:07 Magnesium 1.5 mg/dL (1.7-2.8) L 03/31/18 05:07 Total Bilirubin 2.4 mg/dL (0.2-1.0) H 03/31/18 05:07 AST 40 IU/L (10-42) 03/31/18 05:07 ALT 27 IU/L (10-60) 03/31/18 05:07 Alkaline Phosphatase 73 IU/L (42-121) 03/31/18 05:07 Total Protein 5.1 g/dL (6.7-8.2) L 03/31/18 05:07 Albumin 2.4 g/dL (3.2-5.5) L 03/31/18 05:07 Globulin 2.7 g/dL (2.1-4.2) 03/31/18 05:07 Albumin/Globulin Ratio 0.9 (1.0-2.2) L 03/31/18 05:07 Lipase 18 U/L (22-51) L 03/30/18 03:53 Blood Type O POSITIVE 03/30/18 03:53 Antibody Screen NEGATIVE 03/30/18 03:53 Crossmatch IS Only See Detail 03/30/18 03:53 - Procedures Procedures: Procedures ESOPHAGOGASTRODUODENOSCOPY [EGD] W/CLOSED BIOPSY (04/04/14) EXCISION OF CECUM, ENDO (10/30/15) EXCISION OF DESCENDING COLON, ENDO, DIAGN (10/30/15) EXCISION OF STOMACH, PYLORUS, ENDO, DIAGN (05/08/17) TRANSFUSE NONAUT RED BLOOD CELLS IN PERIPH VEIN, PERC (01/04/17)
[2018-03-31 18:23] LABS: HGB - HEMOGLOBIN 9.2 g/dL (14.0-18.0)
[2018-03-31] MEDS: FAMOTIDINE 20 MG/50 ML 50 ML IV SCH (19:42)
[2018-04-01 00:14] LABS: HGB - HEMOGLOBIN 8.6 g/dL (14.0-18.0); MEAN CORPUSCULAR HEMOGLOBIN 33.4 pg (27.0-31.0); MEAN CORPUSCULAR HGB CONC 33.8 g/dL (32.0-36.0); MEAN CORPUSCULAR VOLUME 98.8 fL (80.0-94.0); MEAN PLATELET VOLUME 9.1 fL (7.4-11.4); RED BLOOD COUNT 2.58 10^6/uL (4.70-6.10); WHITE BLOOD COUNT 11.1 x10^3/uL (4.8-10.8)
[2018-04-01 05:09] LABS: BASOPHILS % (AUTO) 0.4 %; EOSINOPHILS # (AUTO) 0.2 10^3/uL (0.0-0.7); EOSINOPHILS % (AUTO) 2.6 %; LYMPHOCYTES % (AUTO) 21.8 %; MEAN CORPUSCULAR HEMOGLOBIN 33.7 pg (27.0-31.0); MEAN CORPUSCULAR HGB CONC 34.1 g/dL (32.0-36.0); MEAN CORPUSCULAR VOLUME 98.9 fL (80.0-94.0); MEAN PLATELET VOLUME 8.8 fL (7.4-11.4); MONOCYTES # (AUTO) 0.7 10^3/uL (0.0-1.0); MONOCYTES % (AUTO) 7.9 %; NEUTROPHILS # (AUTO) 6.2 10^3/uL (1.5-6.6); NEUTROPHILS % (AUTO) 67.3 %; PLT - PLATELET COUNT 88 10^3/uL (130-450); RED BLOOD COUNT 2.39 10^6/uL (4.70-6.10); RED CELL DISTRIBUTION WIDTH 15.9 % (12.0-15.0); WHITE BLOOD COUNT 9.3 x10^3/uL (4.8-10.8)
[2018-04-01 05:17] LABS: ALBUMIN 2.1 g/dL (3.2-5.5); ALBUMIN/GLOBULIN RATIO 0.8 (1.0-2.2); ALKALINE PHOSPHATASE 65 IU/L (42-121); ALT ALANINE AMINOTRANSFERASE 23 IU/L (10-60); AST ASPARTATE AMINOTRANSFERASE 34 IU/L (10-42); BILIRUBIN,TOTAL 1.5 mg/dL (0.2-1.0); BUN - BLOOD UREA NITROGEN 48 mg/dL (6-20); CALCIUM 7.8 mg/dL (8.5-10.3); CARBON DIOXIDE - CO2 23 mmol/L (21-32); CHLORIDE 110 mmol/L (101-111); CREATININE 1.4 mg/dL (0.6-1.2); GFR - MDRD 48 (>89); GLUCOSE 141 mg/dL (70-100); MAGNESIUM 1.7 mg/dL (1.7-2.8); SODIUM 139 mmol/L (135-145); TOTAL PROTEIN 4.7 g/dL (6.7-8.2)
[2018-04-01 05:20] LABS: VBG PH 7.455 (7.31-7.41)
[2018-04-01] MEDS: SODIUM CHLORIDE FLUSH 0.9% 10 ML SYRINGE IVP SCH ×4 (06:14→23:10)
[2018-04-01] MEDS: SODIUM CHLORIDE FLUSH 0.9% 10 ML SYRINGE IVP PRN ×2 (06:30→23:10)
[2018-04-01] MEDS: PANTOPRAZOLE 40 MG VIAL IVP SCH ×2 (06:30→19:04)
[2018-04-01] MEDS: ESCITALOPRAM 10 MG TABLET PO SCH (09:34)
[2018-04-01] MEDS: POTASSIUM CHLORIDE 10 MEQ CAPSULE PO SCH (09:34)
[2018-04-01] MEDS: METOPROLOL SUCCINATE 50 MG TABLET PO SCH (09:34)
[2018-04-01] MEDS: FERROUS SULFATE 325 MG TABLET PO SCH ×2 (09:34→18:17)
[2018-04-01] MEDS: FAMOTIDINE 20 MG/50 ML 50 ML IV SCH (09:36)
[2018-04-01] MEDS: BIMATOPROST 0.01% OPHTH DROPS 2.5 ML EACHEYE SCH (09:45)
[2018-04-01] MEDS: POLYETHYLENE GLYCOL 3350 17 GM PACKET PO SCH (09:55)
[2018-04-01] MEDS: FUROSEMIDE 20 MG TABLET PO SCH (09:55)
--- NOTE | 2018-04-01 10:06 | PROVIDER PROGRESS NOTE ---
Subjective - General Admit Date: 03/30/18 Procedure Date: 03/30/18 Post Op Days: 2 - Review of Systems Gastrointestinal: positive: Other (black to maroon stools overnight. Non currently) All Other Systems: positive: Reviewed and negative Objective - Patient Data Vital Signs: Vital Signs x48h Temp Pulse Resp BP Pulse Ox 04/01/18 08:28 36.8 C 77 26 H 116/55 L 95 04/01/18 04:38 37.0 C 79 20 121/52 L 96 Weight: Weight 03/30/18 03/31/18 04/01/18 23:59 23:59 23:59 Weight (kg) 97.5 kg 97.5 kg Intake & Output: Intake and Output Totals x24h 03/30/18 03/31/18 04/01/18 23:59 23:59 23:59 Intake Total 4888.666 2097.917 300 Output Total 0 Balance 4888.666 2097.917 300 - Lab Results Lab Results: 04/01/18 04:35 04/01/18 04:35 Other Lab Results: Lab Results x24hrs 04/01/18 04/01/18 04/01/18 Range/Units 04:35 04:35 04:35 WBC 9.3 (4.8-10.8) x10^3/uL RBC 2.39 L (4.70-6.10) 10^6/uL Hgb 8.0 L (14.0-18.0) g/dL Hct 23.6 L (42.0-52.0) % MCV 98.9 H (80.0-94.0) fL MCH 33.7 H (27.0-31.0) pg MCHC 34.1 (32.0-36.0) g/dL RDW 15.9 H (12.0-15.0) % Plt Count 88 L (130-450) 10^3/uL MPV 8.8 (7.4-11.4) fL Neut # (Auto) 6.2 (1.5-6.6) 10^3/uL Lymph # (Auto) 2.0 (1.5-3.5) 10^3/uL [place] # (Auto) 0.7 (0.0-1.0) 10^3/uL Eos # (Auto) 0.2 (0.0-0.7) 10^3/uL Baso # (Auto) 0.0 (0.0-0.1) 10^3/uL Absolute Nucleated RBC 0.02 x10^3/uL Nucleated RBC % 0.2 /100WBC VBG pH 7.455 H (7.31-7.41) Ionized Calcium 1.09 L YES (1.15-1.33) mmol/L Sodium 139 (135-145) mmol/L Potassium 3.9 (3.5-5.0) mmol/L Chloride 110 (101-111) mmol/L Carbon Dioxide 23 (21-32) mmol/L Anion Gap 6.0 (6-13) BUN 48 H (6-20) mg/dL Creatinine 1.4 H (0.6-1.2) mg/dL Estimated GFR (MDRD) 48 L (>89) Glucose 141 H (70-100) mg/dL Calcium 7.8 L (8.5-10.3) mg/dL Magnesium 1.7 (1.7-2.8) mg/dL Total Bilirubin 1.5 H (0.2-1.0) mg/dL AST 34 (10-42) IU/L ALT 23 (10-60) IU/L Alkaline Phosphatase 65 (42-121) IU/L Total Protein 4.7 L (6.7-8.2) g/dL Albumin 2.1 L (3.2-5.5) g/dL Globulin 2.6 (2.1-4.2) g/dL Albumin/Globulin Ratio 0.8 L (1.0-2.2) 04/01/18 03/31/18 Range/Units 00:05 18:08 WBC 11.1 H (4.8-10.8) x10^3/uL RBC 2.58 L (4.70-6.10) 10^6/uL Hgb 8.6 L 9.2 L (14.0-18.0) g/dL Hct 25.5 L 27.9 L (42.0-52.0) % MCV 98.8 H (80.0-94.0) fL MCH 33.4 H (27.0-31.0) pg MCHC 33.8 (32.0-36.0) g/dL RDW 16.0 H (12.0-15.0) % Plt Count 99 L (130-450) 10^3/uL MPV 9.1 (7.4-11.4) fL Neut # (Auto) (1.5-6.6) 10^3/uL Lymph # (Auto) (1.5-3.5) 10^3/uL [place] # (Auto) (0.0-1.0) 10^3/uL Eos # (Auto) (0.0-0.7) 10^3/uL Baso # (Auto) (0.0-0.1) 10^3/uL Absolute Nucleated RBC x10^3/uL Nucleated RBC % /100WBC VBG pH (7.31-7.41) Ionized Calcium (1.15-1.33) mmol/L Sodium (135-145) mmol/L Potassium (3.5-5.0) mmol/L Chloride (101-111) mmol/L Carbon Dioxide (21-32) mmol/L Anion Gap (6-13) BUN (6-20) mg/dL Creatinine (0.6-1.2) mg/dL Estimated GFR (MDRD) (>89) Glucose (70-100) mg/dL Calcium (8.5-10.3) mg/dL Magnesium (1.7-2.8) mg/dL Total Bilirubin (0.2-1.0) mg/dL AST (10-42) IU/L ALT (10-60) IU/L Alkaline Phosphatase (42-121) IU/L Total Protein (6.7-8.2) g/dL Albumin (3.2-5.5) g/dL Globulin (2.1-4.2) g/dL Albumin/Globulin Ratio (1.0-2.2) - Current Medications Current Medications: Current Medications Generic Name Dose Route Start Last Admin Trade Name Freq PRN Reason Stop Dose Admin Bimatoprost 1 drops 03/30/18 09:00 03/31/18 08:19 Lumigan 0.01% Ophth Drops EACHEYE 1 drops DAILY DAVE Administration Escitalopram Oxalate 10 mg 03/30/18 09:00 04/01/18 09:34 Lexapro PO 10 mg DAILY DAVE Administration Ferrous Sulfate 325 mg 03/30/18 08:00 04/01/18 09:34 Feosol PO 325 mg BIDWM DAVE Administration Furosemide 40 mg 03/30/18 09:00 04/01/18 09:55 Lasix PO 40 mg DAILY DAVE Administration Famotidine 50 mls @ 100 mls/hr 03/31/18 19:00 04/01/18 09:36 Pepcid 20 Mg/50 Ml IV 100 mls/hr DAILY DAVE Administration Metoprolol Succinate 25 mg 03/30/18 09:00 04/01/18 09:34 Toprol Xl PO 25 mg DAILY DAVE Administration Pantoprazole Sodium 40 mg 03/30/18 07:00 04/01/18 06:30 Protonix IVP 40 mg BIDAC DAVE Administration Polyethylene Glycol 17 gm 03/30/18 09:00 04/01/18 09:55 Miralax PO Not Given DAILY DAVE Potassium Chloride 10 meq 03/30/18 09:00 04/01/18 09:34 Micro-K PO 10 meq DAILY DAVE Administration Sodium Chloride 10 ml 03/30/18 05:48 04/01/18 06:30 Normal Saline Flush 0.9% IVP 10 ml PRN PRN Administration NEEDED PER PROVIDER ORDERS Sodium Chloride 10 ml 03/30/18 09:00 04/01/18 06:14 Normal Saline Flush 0.9% IVP Not Given 0100,0900,1700 [facility] - Physical Exam Respiratory: positive: No respiratory distress Cardiovascular: positive: Regular rate & rhythm Abdomen: positive: Non-tender Impression/Plan - Problem List Problem List: Colonoscopy showed nonbleeding ulcer in the rectum that was clipped. This is about where the previous bleeding scan showed activity. He had vomited red blood overnight and had black/maroon stools overnight. Hgb 10->8 today. EGD showed esophageal varices. -repeat tagged rbc scan. -transfuse prbcs -check inr
[2018-04-01 10:21] LABS: INR 1.5 (0.8-1.2); PT - PROTHROMBIN TIME 16.8 secs (9.9-12.6)
[2018-04-01] MEDS ORDERED: SODIUM CHLORIDE 0.9% 1,000 ML IV ONE (12:59)
--- NOTE | 2018-04-01 16:25 | Nuclear Medicine Report ---
Procedure Date: 04/01/2018 Accession Number: [id number] / [id number] Procedure: NM - GI Bleed/Tagged RBC CPT Code: FULL RESULT: EXAM: GASTROINTESTINAL BLEED LOCALIZATION STUDY WITH VASCULAR FLOW STUDY EXAM DATE: 04/01/2018 03:54 PM. CLINICAL HISTORY: Gastrointestinal bleeding. Colonoscopy showed an ulcer in the rectum. EGD showed esophageal varices. COMPARISON: 03/30/2018. TECHNIQUE: The patient's own red blood cells were labeled with 23.7 mCi Tc-99m pertechnetate according to department protocol. Following the administration of the radiolabeled red blood cells, dynamic flow images were acquired for the initial 2 minutes. Next, dynamic gamma camera imaging for a total of 60 minutes post injection was acquired from the anterior projection. FINDINGS: The esophagus is obscured by cardiac blood pool activity. No abnormal radiolabeled red blood cell accumulation in the stomach. There is linear activity in the rectum. Physiological uptake in vasculature, spleen, liver, and bladder. IMPRESSION: 1. There is a persistent rectal bleed. 2. No obvious esophageal bleed, however evaluation is limited. RADIA
[2018-04-01] MEDS: SODIUM/POTASSIUM/MAG SULFATES 354 ML PREP KIT PO SCH ×2 (18:25→20:42)
--- NOTE | 2018-04-01 18:56 | PROVIDER PROGRESS NOTE ---
Assessment/Plan - Problem List (1) Hematemesis/vomiting blood Qualifiers: Nausea presence: unspecified Qualified Code(s): K92.0 - Hematemesis Assessment/Plan: No further hematemesis since 24 hours ago. The Hgb dropped to 8 this am and 2 U PRBCs being ordered. Follow H/H q12 h. Another tagged nuclear bleeding scan was done and did not show activity in the UGI area. Will continue ulcer prophylaxis. Surgeon has ordered NPO and a bowel prep for repeat EGD with colonoscopy tomorrow. If there are any witnessed upper or lower GI bleeds, the Pt would be transferred to a higher level of care. (2) Lower GI bleed Assessment/Plan: Rectal lesion was clipped 2 days ago. Since he still has black BMs but nuclear tagged bleeding scan was abn in rectum , repeat EGD with colonoscopy after a GI prep is now planned, to be done by Haja Ivy tomorrow. (3) Dementia Qualifiers: Dementia type: unspecified type Dementia behavioral disturbance: without behavioral disturbance Qualified Code(s): F03.90 - Unspecified dementia without behavioral disturbance Assessment/Plan: Stable, pleasant an cooperative but poor memory. (4) BPH (benign prostatic hyperplasia) Assessment/Plan: Pt on treatment for this. - Current Meds Current Meds: Current Medications Generic Name Dose Route Start Last Admin Trade Name Carlos Eduardo PRN Reason Stop Dose Admin Bimatoprost 1 drops 03/30/18 09:00 04/01/18 09:45 Lumigan 0.01% Ophth Drops EACHEYE 1 drops DAILY DAVE Administration Escitalopram Oxalate 10 mg 03/30/18 09:00 04/01/18 09:34 Lexapro PO 10 mg DAILY DAVE Administration Ferrous Sulfate 325 mg 03/30/18 08:00 04/01/18 18:17 Feosol PO Not Given BIDWM DAVE Furosemide 40 mg 03/30/18 09:00 04/01/18 09:55 Lasix PO 40 mg DAILY DAVE Administration Famotidine 50 mls @ 100 mls/hr 03/31/18 19:00 04/01/18 10:15 Pepcid 20 Mg/50 Ml IV Infused DAILY DAVE Infusion Metoprolol Succinate 25 mg 03/30/18 09:00 04/01/18 09:34 Toprol Xl PO 25 mg DAILY DAVE Administration Pantoprazole Sodium 40 mg 03/30/18 07:00 04/01/18 06:30 Protonix IVP 40 mg BIDAC DAVE Administration Polyethylene Glycol 17 gm 03/30/18 09:00 04/01/18 09:55 Miralax PO Not Given DAILY DAVE Potassium Chloride 10 meq 03/30/18 09:00 04/01/18 09:34 Micro-K PO 10 meq DAILY DAVE Administration Sodium Chloride 10 ml 03/30/18 05:48 04/01/18 06:30 Normal Saline Flush 0.9% IVP 10 ml PRN PRN Administration NEEDED PER PROVIDER ORDERS Sodium Chloride 10 ml 03/30/18 09:00 04/01/18 18:26 Normal Saline Flush 0.9% IVP 10 ml 0100,0900,1700 DAVE Administration Sodium Sulfate/Potass Sulf/Mag Sulf 177 ml 04/01/18 16:00 04/01/18 18:25 Suprep Bowel Prep Kit PO 04/01/18 19:01 354 ml 1600,1900 DAVE Administration - Lab Result Fish Bone Diagrams: 04/01/18 04:35 04/01/18 04:35 - Additional Planning My Orders: My Active Orders 03/31/18 19:00 Famotidine 20 mg/50 ml [Pepcid 20 mg/50 ml] 50 ml IV DAILY 04/01/18 18:00 HCT - HEMATOCRIT [HEME] Timed HGB - HEMOGLOBIN [HEME] Timed 04/02/18 05:00 BMP - BASIC METABOLIC PANEL [CHEM] DAILYLAB 04/03/18 05:00 BMP - BASIC METABOLIC PANEL [CHEM] DAILYLAB Subjective - Subjective Patient Reports: Other (Rectal pain when being cleaned by RN.) Objective Vital Signs: Vital Signs - 24 hr 03/31/18 03/31/18 03/31/18 19:10 19:40 21:00 Temperature 37.4 C Heart Rate Heart Rate [ 76 85 Monitoring electrodes] Respiratory 16 25 H 24 Rate Blood Pressure Blood Pressure 111/73 116/57 L 128/66 [Right Brachial artery] O2 Saturation 96 96 96 03/31/18 04/01/18 04/01/18 23:43 04:38 08:28 Temperature 37.1 C 37.0 C 36.8 C Heart Rate Heart Rate [ 93 79 77 Monitoring electrodes] Respiratory 21 20 26 H Rate Blood Pressure Blood Pressure 144/65 H 121/52 L 116/55 L [Right Brachial artery] O2 Saturation 98 96 95 04/01/18 04/01/18 04/01/18 14:32 14:45 16:38 Temperature 36.4 C L 36.8 C 36.2 C L Heart Rate 80 82 75 Heart Rate [ Monitoring electrodes] Respiratory 20 22 21 Rate Blood Pressure 132/64 H 152/67 H 135/68 H Blood Pressure [Right Brachial artery] O2 Saturation 04/01/18 04/01/18 16:50 16:59 Temperature 36.5 C Heart Rate 75 Heart Rate [ 85 Monitoring electrodes] Respiratory 22 21 Rate Blood Pressure 157/71 H Blood Pressure 157/71 H [Right Brachial artery] O2 Saturation 96 Oxygen O2 Source Room air I&O (Last 24 Hrs): Intake and Output Totals x24h 03/30/18 03/31/18 04/01/18 23:59 23:59 23:59 Intake Total 4888.666 2097.917 696 Output Total 0 Balance 4888.666 2097.917 696 General: Alert HEENT: Mucous membr. moist/pink Neck: Supple Neuro: Other (Poor memory) Cardiovascular: No murmurs Respiratory: No respiratory distress Abdomen: Soft Rectal: Black Stool Extremities: No edema - Results Results: Laboratory Results WBC 9.3 x10^3/uL (4.8-10.8) 04/01/18 04:35 RBC 2.39 10^6/uL (4.70-6.10) L 04/01/18 04:35 Hgb 8.0 g/dL (14.0-18.0) L 04/01/18 04:35 Hct 23.6 % (42.0-52.0) L 04/01/18 04:35 MCV 98.9 fL (80.0-94.0) H 04/01/18 04:35 MCH 33.7 pg (27.0-31.0) H 04/01/18 04:35 MCHC 34.1 g/dL (32.0-36.0) 04/01/18 04:35 RDW 15.9 % (12.0-15.0) H 04/01/18 04:35 Plt Count 88 10^3/uL (130-450) L 04/01/18 04:35 MPV 8.8 fL (7.4-11.4) 04/01/18 04:35 Neut # (Auto) 6.2 10^3/uL (1.5-6.6) 04/01/18 04:35 Lymph # (Auto) 2.0 10^3/uL (1.5-3.5) 04/01/18 04:35 [place] # (Auto) 0.7 10^3/uL (0.0-1.0) 04/01/18 04:35 Eos # (Auto) 0.2 10^3/uL (0.0-0.7) 04/01/18 04:35 Baso # (Auto) 0.0 10^3/uL (0.0-0.1) 04/01/18 04:35 Absolute Nucleated RBC 0.02 x10^3/uL 04/01/18 04:35 Nucleated RBC % 0.2 /100WBC 04/01/18 04:35 PT 16.8 secs (9.9-12.6) H 04/01/18 10:05 INR 1.5 (0.8-1.2) H 04/01/18 10:05 APTT 29.7 secs (24.9-33.3) 03/30/18 03:53 Fibrinogen 327 mg/dL (220-496) 04/01/18 09:52 VBG pH 7.455 (7.31-7.41) H 04/01/18 04:35 Ionized Calcium 1.09 mmol/L (1.15-1.33) L 04/01/18 04:35 Sodium 139 mmol/L (135-145) 04/01/18 04:35 Potassium 3.9 mmol/L (3.5-5.0) 04/01/18 04:35 Chloride 110 mmol/L (101-111) 04/01/18 04:35 Carbon Dioxide 23 mmol/L (21-32) 04/01/18 04:35 Anion Gap 6.0 (6-13) 04/01/18 04:35 BUN 48 mg/dL (6-20) H 04/01/18 04:35 Creatinine 1.4 mg/dL (0.6-1.2) H 04/01/18 04:35 Estimated GFR (MDRD) 48 (>89) L 04/01/18 04:35 Glucose 141 mg/dL (70-100) H 04/01/18 04:35 Calcium 7.8 mg/dL (8.5-10.3) L 04/01/18 04:35 Ionized Calcium YES 04/01/18 04:35 Phosphorus 3.1 mg/dL (2.5-4.6) 03/31/18 05:07 Magnesium 1.7 mg/dL (1.7-2.8) 04/01/18 04:35 Total Bilirubin 1.5 mg/dL (0.2-1.0) H 04/01/18 04:35 AST 34 IU/L (10-42) 04/01/18 04:35 ALT 23 IU/L (10-60) 04/01/18 04:35 Alkaline Phosphatase 65 IU/L (42-121) 04/01/18 04:35 Total Protein 4.7 g/dL (6.7-8.2) L 04/01/18 04:35 Albumin 2.1 g/dL (3.2-5.5) L 04/01/18 04:35 Globulin 2.6 g/dL (2.1-4.2) 04/01/18 04:35 Albumin/Globulin Ratio 0.8 (1.0-2.2) L 04/01/18 04:35 Lipase 18 U/L (22-51) L 03/30/18 03:53 Blood Type O POSITIVE 03/30/18 03:53 Antibody Screen NEGATIVE 03/30/18 03:53 Crossmatch IS Only See Detail 03/30/18 03:53 - Procedures Procedures: Procedures ESOPHAGOGASTRODUODENOSCOPY [EGD] W/CLOSED BIOPSY (04/04/14) EXCISION OF CECUM, ENDO (10/30/15) EXCISION OF DESCENDING COLON, ENDO, DIAGN (10/30/15) EXCISION OF STOMACH, PYLORUS, ENDO, DIAGN (05/08/17) TRANSFUSE NONAUT RED BLOOD CELLS IN PERIPH VEIN, PERC (01/04/17)
[2018-04-01 20:22] LABS: HGB - HEMOGLOBIN 10.1 g/dL (14.0-18.0)
[2018-04-01] MEDS ORDERED: HALOPERIDOL 5 MG/ML VIAL IM ONE (22:00)
[2018-04-01] MEDS ORDERED: PANTOPRAZOLE 80 MG in SODIUM CHLORIDE 0.9% 100ML 100 ML IV ONE (22:31)
[2018-04-01] MEDS ORDERED: PANTOPRAZOLE 80 MG in SODIUM CHLORIDE 0.9% 100ML 100 ML IV SCH (23:00)
[2018-04-01] MEDS ORDERED: OCTREOTIDE 500 MCG in SODIUM CHLORIDE 0.9% 100ML 99 ML IV SCH (23:00)
[2018-04-01] MEDS ORDERED: SODIUM CHLORIDE 0.9% 100ML 200 ML IV ONE (23:03)
[2018-04-01 23:07] LABS: HGB - HEMOGLOBIN 9.9 g/dL (14.0-18.0); MEAN CORPUSCULAR HEMOGLOBIN 32.9 pg (27.0-31.0); MEAN CORPUSCULAR VOLUME 96.9 fL (80.0-94.0); MEAN PLATELET VOLUME 8.7 fL (7.4-11.4); RED BLOOD COUNT 2.99 10^6/uL (4.70-6.10); RED CELL DISTRIBUTION WIDTH 16.1 % (12.0-15.0); WHITE BLOOD COUNT 7.1 x10^3/uL (4.8-10.8)
[2018-04-01] MEDS ORDERED: OCTREOTIDE 100 MCG/ML VIAL ONE (23:23)
--- NOTE | 2018-04-01 23:42 | DISCHARGE SUMMARY ---
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 Hematemesis/vomiting blood 2. Dementia 3. GERD 4. Depression 5. Glaucoma 6. BPH 7. CKD stage III Discharge Diagnoses with Status of Each Condition: 1. Lower GI bleed, rectal ulcer: Unstable 2. Hypotension: Guarded 3. Dementia: Stable 4. BPH: Stable 5. CKD stage III: Stable 6. Esophageal varices: Guarded - HPI History of Present Illness: Mr. Pavel Farmer is a very pleasant but highly demented male, 88 years old, with a history significant for GI bleeds for several years amongst many other comorbidities, who presented to the emergency department early this morning with hematemesis. While in the ED the patient also had a large maroon colored stool which was guaiac positive. According to his , he was supposed to follow-up with a doctor in [place] for an endoscopy of some sort but this somehow fell through the cracks- it's unclear when. His hemoglobin on admission is 7.5 and we will transfuse him 2 units of packed red blood cells. We will ask general surgery to evaluate the patient for possible endoscopy. We will address his multiple comorbidities while he is inpatient. I spoke with Clara Carltonler the patients over the phone to inform her that patient needs blood as he is hypotensive and having large maroon bowel movements. She consented to him getting blood over the phone and wants us to do what we can to save his life. She said he has had 6 units of packed red blood cells in the past. Patient initially presented with hematemesis but since being admitted developed persistent bloody stools. Patient became hypotensive and tachycardic and had to be transferred to the intensive care unit. He underwent a tagged RBC scan which showed bleeding originating from the rectum. Patient was given a bowel prep with enema and taken urgently to the OR for EGD and colonoscopy. Surgery found that the patient had a large rectal ulcer which was clipped. Patient was also found to have esophageal varices that were nonbleeding. Patient had large amounts of blood around the ulcer which was irrigated. Patient was transfused 4 units of packed RBCs and hemoglobin is now up to 9.8. Patient still has a soft blood pressure but appears to have stopped bleeding. He will remain in the intensive care unit overnight for close monitoring. - CONSULTS | PROCEDURES Consultations: Surgery Procedures: EGD Impression: 1. The duodenal mucosa showed no abnormalities 2. Large hiatal hernia 3. The mucosa of the stomach appeared normal; complete hemostasis was achieved by placing a single Hemoclip on the bleeding site 4. Large hiatal hernia 5. Retroflexed views revealed a hiatal hernia 6. Esophageal varices nonbleeding Colonoscopy Impression: 1. Medium-sized ulcer was found in the rectum; complete hemostasis was achieved by placing 2 hemoclips on the bleeding site 2. Retroflexed views revealed no abnormalities Pathology results Impression: 1. Gastric hiatal hernia biopsies: A. Gastric fundic type mucosa with no diagnostic alterations. B. No chronic gastritis or Helicobacter 2. Sigmoid colon biopsies: A. Architecturally intact colonic mucosa with mild postinflammatory changes, histologically nonspecific but compatible with diverticular related inflammation. B. Negative for microscopic colitis. - HOSPITAL COURSE Hospital Course: Upon admission to the medical ruth the patient began having large persistent bloody stools with initially maroon colored stools then bright red blood per rectum. Patient quickly became hypotensive with blood pressure of 83/64 and required several liters of IV fluid and packed RBCs were started. Surgery was consulted and recommended a tagged RBC scan which showed bleeding originating from the rectum. The patient was given a bowel prep with enema and taken urgently to the OR for EGD and colonoscopy. Surgery found that the patient had a moderate sized rectal ulcer which was clipped. Patient was also seen to have esophageal varices that were nonbleeding. Patient had large amounts of blood around the ulcer which was irrigated. Patient was transfused 4 units of packed RBCs and hemoglobin improved from 7.5-10.0. The patient had appear to stop bleeding as his hemoglobin remained stable overnight but later on the evening of 03/31/2018 the patient began having black tarry stools which then became maroon stools. Patient's hemoglobin began to decrease down to 9.2 then 8.6 and then 8.0 this morning. The patient again appeared to have stopped bleeding but was given 2 units of packed RBCs. Then on the evening of 04/01/2018 patient again began having black tarry stools which then became maroon and then he started having rapid bright red blood per rectum. The patient started to drop his blood pressure from 149 systolic down to 110 systolic despite getting IV fluids. Spoke with the surgeon case resolution specialist who felt at this point the patient belonged in a hospital setting with gastroenterology and an gas desulfurizer as the surgeon was concerned for possible esophageal variceal bleeding. I called [facility] in [place] and spoke with Dr. Gonzalez the quality systems specialist and explained the situation to him. He accepted the patient kindly in transfer and asked that we start the patient on a Protonix drip and IV octreotide drip. The patient was previously on Protonix IV twice daily but we did switch him to an Protonix drip and octreotide drip prior to discharge. Patient was airlifted to [facility] in [place]. Spoke with the patient's who confirmed again that the patient is DNR but she wanted full treatment aside from chest compressions. The patient is a daily drinker and does appear to have some sequelae of end- stage liver disease with platelet count of 88, bilirubin of 1.5 and INR of 1.5 without any anticoagulation. The patient also appears to have esophageal varices on EGD. The patient's most recent abdominal ultrasound shows splenomegaly but does not show a cirrhotic liver. The patient also has a past medical history that is significant for severe dementia, hypertension, history of multiple GI bleeds, osteoarthritis and depression. The patient was transferred from [facility] in critical condition and was airlifted to [facility] in [place] for a GI bleed. - ALLERGIES Allergies/Adverse Reactions: Allergies Allergy/AdvReac Type Severity Reaction Status Date / Time No Known Drug Allergies Allergy Verified 03/30/18 03:54 - MEDICATIONS Home Medications: Ambulatory Orders Medication Instructions Recorded Confirmed Aspirin [Aspirin EC] 81 mg PO DAILY 01/04/17 03/30/18 Ferrous Sulfate [Feosol] 325 mg PO BIDWM #60 tablet 01/05/17 03/30/18 Omeprazole 20 mg PO BID 02/19/18 03/30/18 Bimatoprost 0.01% Ophth Dops 1 drops EACHEYE DAILY 03/30/18 03/30/18 [Lumigan 0.01% Ophth Drops] Escitalopram [Lexapro] 10 mg PO DAILY 03/30/18 03/30/18 Furosemide [Lasix] 40 mg PO DAILY 03/30/18 03/30/18 Metoprolol Succinate [Toprol Xl] 25 mg PO DAILY 03/30/18 03/30/18 Tamsulosin [Flomax] 0.4 mg PO DAILY 03/30/18 03/30/18 hydrOXYzine HCl [Hydroxyzine HCl] 25 mg PO DAILY 03/30/18 03/30/18 Docusate Sodium 250Mg Capsule 250 mg PO BID #60 capsule 03/31/18 [Colace 250Mg Capsule] Polyethylene Glycol 3350 [Miralax] 17 gm PO DAILY #30 packet 03/31/18 - PHYSICAL EXAM AT DISCHARGE General Appearance: positive: Moderate distress (Ongoing BRBPR, pale, hypotensive), Other (Confused, demented) Eyes Bilateral: positive: Normal inspection, PERRL, EOMI, No lid inflammation, No scleral icterus, Other (Congunctival pallor) ENT: positive: ENT inspection nml, Pharynx nml, Dry mucous membranes. negative : Purulent nasal drainage, Pharyngeal erythema, Oral lesions Neck: positive: Nml inspection, Thyroid nml, No JVD, Trachea midline. negative : Thyromegaly, Lymphadenopathy (R), Lymphadenopathy (L), Stiff neck, Carotid bruit, Swelling/bruising, Tracheal deviation Respiratory: positive: Chest non-tender, No respiratory distress, Breath sounds nml. negative: Wheezes, Rales, Rhonchi Cardiovascular: positive: Regular rate & rhythm, No murmur, No gallop Peripheral Pulses: positive: 2+ Abdomen: positive: No organomegaly, Nml bowel sounds, Tenderness (Mild, lower), Splenomegaly. negative: Guarding, Rebound, Hepatomegaly Back: positive: Nml inspection. negative: CVA tenderness (R), CVA tenderness (L ) Skin: positive: Warm, Dry, Pallor. negative: Cyanosis, Diaphoresis, Skin rash Extremities: positive: Non-tender, Full ROM, Nml appearance, Pedal edema Neurologic/Psychiatric: positive: CN's nml (2-12), Motor nml, Sensation nml, Disoriented to place, Disoriented to time, Other (Demented. confused) - LABS Result Diagrams: 04/01/18 23:01 04/01/18 04:35 Other Lab Results: Laboratory Results WBC 7.1 x10^3/uL (4.8-10.8) 04/01/18 23:01 RBC 2.99 10^6/uL (4.70-6.10) L 04/01/18 23:01 Hgb 9.9 g/dL (14.0-18.0) L 04/01/18 23:01 Hct 29.0 % (42.0-52.0) L 04/01/18 23:01 MCV 96.9 fL (80.0-94.0) H 04/01/18 23:01 MCH 32.9 pg (27.0-31.0) H 04/01/18 23:01 MCHC 34.0 g/dL (32.0-36.0) 04/01/18 23:01 RDW 16.1 % (12.0-15.0) H 04/01/18 23:01 Plt Count 86 10^3/uL (130-450) L 04/01/18 23:01 MPV 8.7 fL (7.4-11.4) 04/01/18 23:01 Neut # (Auto) 6.2 10^3/uL (1.5-6.6) 04/01/18 04:35 Lymph # (Auto) 2.0 10^3/uL (1.5-3.5) 04/01/18 04:35 [place] # (Auto) 0.7 10^3/uL (0.0-1.0) 04/01/18 04:35 Eos # (Auto) 0.2 10^3/uL (0.0-0.7) 04/01/18 04:35 Baso # (Auto) 0.0 10^3/uL (0.0-0.1) 04/01/18 04:35 Absolute Nucleated RBC 0.02 x10^3/uL 04/01/18 04:35 Nucleated RBC % 0.2 /100WBC 04/01/18 04:35 PT 16.8 secs (9.9-12.6) H 04/01/18 10:05 INR 1.5 (0.8-1.2) H 04/01/18 10:05 APTT 29.7 secs (24.9-33.3) 03/30/18 03:53 Fibrinogen 327 mg/dL (220-496) 04/01/18 09:52 VBG pH 7.455 (7.31-7.41) H 04/01/18 04:35 Ionized Calcium 1.09 mmol/L (1.15-1.33) L 04/01/18 04:35 Sodium 139 mmol/L (135-145) 04/01/18 04:35 Potassium 3.9 mmol/L (3.5-5.0) 04/01/18 04:35 Chloride 110 mmol/L (101-111) 04/01/18 04:35 Carbon Dioxide 23 mmol/L (21-32) 04/01/18 04:35 Anion Gap 6.0 (6-13) 04/01/18 04:35 BUN 48 mg/dL (6-20) H 04/01/18 04:35 Creatinine 1.4 mg/dL (0.6-1.2) H 04/01/18 04:35 Estimated GFR (MDRD) 48 (>89) L 04/01/18 04:35 Glucose 141 mg/dL (70-100) H 04/01/18 04:35 Calcium 7.8 mg/dL (8.5-10.3) L 04/01/18 04:35 Ionized Calcium YES 04/01/18 04:35 Phosphorus 3.1 mg/dL (2.5-4.6) 03/31/18 05:07 Magnesium 1.7 mg/dL (1.7-2.8) 04/01/18 04:35 Total Bilirubin 1.5 mg/dL (0.2-1.0) H 04/01/18 04:35 AST 34 IU/L (10-42) 04/01/18 04:35 ALT 23 IU/L (10-60) 04/01/18 04:35 Alkaline Phosphatase 65 IU/L (42-121) 04/01/18 04:35 Total Protein 4.7 g/dL (6.7-8.2) L 04/01/18 04:35 Albumin 2.1 g/dL (3.2-5.5) L 04/01/18 04:35 Globulin 2.6 g/dL (2.1-4.2) 04/01/18 04:35 Albumin/Globulin Ratio 0.8 (1.0-2.2) L 04/01/18 04:35 Lipase 18 U/L (22-51) L 03/30/18 03:53 Blood Type O POSITIVE 03/30/18 03:53 Antibody Screen NEGATIVE 03/30/18 03:53 Crossmatch IS Only See Detail 03/30/18 03:53 - DIAGNOSTIC IMAGING Diagnostic Imaging Results: Final report reviewed Diagnostic Imaging Results Comments: Tagged RBC scan: 03/30/2018 Impression: GI bleed likely originating in the rectum Tagged RBC scan: 04/01/2018 Impression: 1. There is persistent rectal bleed. 2. No obvious esophageal bleed, however evaluation is limited. - FOLLOW UP Follow Up: Patient being transferred to [facility] in [place] under the care of Dr. Gonzalez intensive care. Patient is having a rapid GI bleed with persistent bright bled blood per rectum. Patient is becoming hypotensive and requires emergent transfer. Patient is being transferred by airlift. Patient is in critical condition. Patient's was notified of transfer and stated she wants patient to be DO NOT RESUSCITATE but wants full treatment. - TIME SPENT Time Spent in Discharge (Minutes): 55"
[2018-04-01 23:43] VITALS: BP 151/88
--- NOTE | 2018-04-09 01:15 | CONSULTATION NOTE ---
DATE OF SERVICE: 03/30/2018 Physician: Gerber Ivy MD REFERRING PROVIDER: Dr. Suyapa Irving REASON FOR REFERRAL: Gastrointestinal bleeding. HISTORY OF PRESENT ILLNESS: The patient is an 88-year-old male who has a long history of gastrointestinal bleeding. He has had a colonoscopy 2 years ago on which internal hemorrhoids were seen. He had upper endoscopy 9 months ago which was essentially normal other than a hiatal hernia. He continued to have rectal bleeding. Because of this, he came to the emergency room. He does have dementia and therefore unable to be giving an adequate history. He was, according to his , having hematemesis and then maroon-colored stool along with some black being present. His hemoglobin was 7.5. PAST MEDICAL HISTORY, PAST SURGICAL HISTORY, ALLERGIES, MEDICATIONS: Per previous surgical H and Ps. REVIEW OF SYSTEMS: Unable to be obtained due to dementia. PHYSICAL EXAMINATION VITAL SIGNS: Temperature is 37.3, heart rate 75, blood pressure 135/74. GENERAL: The patient is an elderly male with dementia. He does respond to voice commands but is not able to give any history. EYES: Nonicteric. NECK: No lymphadenopathy. HEART: Regular. LUNGS: Clear. BACK: Nontender. ABDOMEN: Soft, nontender. EXTREMITIES: No edema or cyanosis. NEUROLOGICAL: The patient appears to be neurologically intact. PSYCHOLOGICAL: Dementia. DIAGNOSTIC DATA: Hemoglobin is 7.5, for which he is being transfused. ASSESSMENT 1. Recurrent gastrointestinal bleeding of unknown etiology. He has had upper and lower endoscopy and in the last year or two with continued hematemesis and hematochezia with some melena. At the current time, I would recommend getting a tagged red blood cell scan in order to help evaluate where this gastrointestinal bleeding is coming from. 2. Dementia. 3. Hypertension, on medications. 4. Gastroesophageal reflux disease with hiatal hernia. 5. Depression. 6. Arthritis. PLAN 1. NPO. 2. Tagged red blood cell scan to try and determine where he may be having his gastrointestinal bleeding. TD: 04/09/2018 00:19 BRITNEY
== END 2018-04-02 00:05 | disposition short-term general hospital (02) | DRG 377 ==
LOC: EDUNIT# → SUPCPDRO 03:46 → ED 03:46 → MS2 05:48 → ICU 11:30
PROVIDERS: ADMIT Hospitalist; ATTEND Internal Medicine
PROC: 0DB68ZX Excision of Stomach, Via Natural or Artificial Opening Endoscopic, Diagnostic (ICD-10-PCS; 2018-03-30)
PROC: 30233N1 Transfusion of Nonautologous Red Blood Cells into Peripheral Vein, Percutaneous Approach (ICD-10-PCS; 2018-03-30)
PROC: 0W3P8ZZ Control Bleeding in Gastrointestinal Tract, Via Natural or Artificial Opening Endoscopic (ICD-10-PCS; principal; 2018-03-30 14:15)
PROC: 0DBP8ZX Excision of Rectum, Via Natural or Artificial Opening Endoscopic, Diagnostic (ICD-10-PCS; 2018-03-30 14:15)
DX: K92.0 Hematemesis (principal); K92.1 Melena; I85.11 Secondary esophageal varices with bleeding; I10 Essential (primary) hypertension; K62.6 Ulcer of anus and rectum; D62 Acute posthemorrhagic anemia; I95.9 Hypotension, unspecified; E86.0 Dehydration; K70.30 Alcoholic cirrhosis of liver without ascites; F10.10 Alcohol abuse, uncomplicated; K44.9 Diaphragmatic hernia without obstruction or gangrene; F03.90 Unspecified dementia, unspecified severity, without behavioral disturbance, psychotic disturbance, mood disturbance, and anxiety; K21.9 Gastro-esophageal reflux disease without esophagitis; K64.8 Other hemorrhoids; R16.1 Splenomegaly, not elsewhere classified; N40.0 Benign prostatic hyperplasia without lower urinary tract symptoms; I12.9 Hypertensive chronic kidney disease with stage 1 through stage 4 chronic kidney disease, or unspecified chronic kidney disease; N18.3 Chronic kidney disease, stage 3 (moderate); F32.9 Major depressive disorder, single episode, unspecified; H40.9 Unspecified glaucoma; Z66 Do not resuscitate; Z79.82 Long term (current) use of aspirin; Z86.010 Personal history of colon polyps; Z79.899 Other long term (current) drug therapy
CPT/HCPCS: 36415; 78278; 80048; 80053; 82330; 83690; 83735; 84100; 85014; 85018; 85025; 85027; 85384; 85610; 85730; 86850; 86900; 86901; 86920; 87150; 93005; 96361; 96374; 99284; 99285

== ENCOUNTER 2018-04-14 15:00 | Outpatient (CLI) | payer MEDICARE ==
[2018-04-14 15:57] LABS: CALCIUM 7.9 mg/dL (8.5-10.3); CREATININE 1.1 mg/dL (0.6-1.2)
[2018-04-14 15:59] LABS: BASOPHILS % (AUTO) 0.4 %; EOSINOPHILS # (AUTO) 0.3 10^3/uL (0.0-0.7); EOSINOPHILS % (AUTO) 4.8 %; HGB - HEMOGLOBIN 8.8 g/dL (14.0-18.0); LYMPHOCYTES # (AUTO) 1.1 10^3/uL (1.5-3.5); LYMPHOCYTES % (AUTO) 16.3 %; MEAN CORPUSCULAR HEMOGLOBIN 32.4 pg (27.0-31.0); MEAN CORPUSCULAR HGB CONC 32.7 g/dL (32.0-36.0); MEAN CORPUSCULAR VOLUME 98.9 fL (80.0-94.0); MEAN PLATELET VOLUME 8.7 fL (7.4-11.4); MONOCYTES # (AUTO) 0.7 10^3/uL (0.0-1.0); MONOCYTES % (AUTO) 10.4 %; NEUTROPHILS # (AUTO) 4.6 10^3/uL (1.5-6.6); NEUTROPHILS % (AUTO) 68.1 %; PLT - PLATELET COUNT 140 10^3/uL (130-450); RED BLOOD COUNT 2.73 10^6/uL (4.70-6.10); WHITE BLOOD COUNT 6.8 x10^3/uL (4.8-10.8)
== END 2018-04-14 15:01 | disposition home or self-care (01) ==
LOC: LAB.R 15:00
PROVIDERS: ATTEND Family Medicine
DX: K74.60 Unspecified cirrhosis of liver (principal); D62 Acute posthemorrhagic anemia
CPT/HCPCS: 80048; 85025

== ENCOUNTER 2018-04-22 08:00 | Outpatient (CLI) | payer MEDICARE ==
[2018-04-22 01:55] LABS: BASOPHILS % (AUTO) 0.8 %; EOSINOPHILS # (AUTO) 0.2 10^3/uL (0.0-0.7); EOSINOPHILS % (AUTO) 5.7 %; HGB - HEMOGLOBIN 8.1 g/dL (14.0-18.0); LYMPHOCYTES % (AUTO) 23.7 %; MEAN CORPUSCULAR HEMOGLOBIN 32.4 pg (27.0-31.0); MEAN CORPUSCULAR HGB CONC 33.2 g/dL (32.0-36.0); MEAN CORPUSCULAR VOLUME 97.7 fL (80.0-94.0); MEAN PLATELET VOLUME 8.9 fL (7.4-11.4); MONOCYTES # (AUTO) 0.5 10^3/uL (0.0-1.0); MONOCYTES % (AUTO) 12.2 %; NEUTROPHILS # (AUTO) 2.4 10^3/uL (1.5-6.6); NEUTROPHILS % (AUTO) 57.6 %; PLT - PLATELET COUNT 89 10^3/uL (130-450); RED CELL DISTRIBUTION WIDTH 16.7 % (12.0-15.0); WHITE BLOOD COUNT 4.2 x10^3/uL (4.8-10.8)
[2018-04-22 02:57] LABS: CALCIUM 7.9 mg/dL (8.5-10.3); CREATININE 1.2 mg/dL (0.6-1.2)
== END 2018-04-22 08:01 | disposition home or self-care (01) ==
LOC: LAB.R 08:00
DX: I10 Essential (primary) hypertension (principal); D64.9 Anemia, unspecified
CPT/HCPCS: 80048; 85025